=== PATIENT | male | born 1995 | race Caucasian/White ===

== ENCOUNTER 2018-06-24 12:26 | Emergency (ER) | payer BC, SELFPAY ==
[2018-06-24 12:30] VITALS: BP 142/76; PULSE 101; RESP 20; TEMP 36.7; O2SAT 94
== END 2018-06-24 14:18 | disposition left before discharge ==
LOC: ER 12:45
PROVIDERS: Emergency Provider Physician Assistant; PCP Family Medicine
DX: Z53.21 Procedure and treatment not carried out due to patient leaving prior to being seen by health care provider (principal)

== ENCOUNTER 2018-12-05 10:02 | Emergency (ER) | payer MEDICAID, SELFPAY ==
[2018-12-05 10:43] VITALS: BP 124/87; PULSE 71; RESP 18; TEMP 36.7; O2SAT 100
--- NOTE | 2018-12-05 10:48 | DI.RAD_ITS ---
SYMPTOM/DIAGNOSIS: PAIN RIGHT SHOULDER: Five views. Comparison chest xray is 08/12/15. The distal clavicle is slightly elevated relative to the acromion. This may represent a mild separation. No other fracture or dislocation is identified. IMPRESSION: Mild elevation of the clavicle relative to the acromion. This may represent a mild acromioclavicular separation.
--- NOTE | 2018-12-05 11:16 | ED.GENADUL_ITS ---
Discharge Plan Disposition Patient Disposition: HOME Condition: Stable Discharge Details Chief Complaint: Orthopedic Clinical Impression: Sprain of shoulder, right Primary Care Provider: Kristie Berger ED Provider: Maurice Staton Home Meds and New Rx's Prescriptions: Continued omeprazole 40 mg capsule,delayed release(DR/EC) 40 mg PO DAILY Qty: 90 RF: 0 albuterol sulfate [ProAir HFA] 90 mcg/actuation HFA aerosol inhaler 2 inh Inhalation QID PRN (Reason: bronchospasm) Qty: 8.5 RF: 4 sucralfate 1 gram tablet 1 g PO BID Qty: 60 RF: 3 methadone 10 mg Tablet 75 mg PO DAILY RF: 0 Discharge Instructions Instructions: Shoulder Sprain (ED) Additional Instructions: You may use the provided sling as needed for discomfort but you should perform gentle range of motion activities and you may slowly increase use of your shoulder as tolerated by pain. If not improving over the next 2 weeks please follow-up with orthopedist for reassessment. Referrals: Shawn Grajeda MD [ [facility]FF [facility]YS[facility]IAN] - (As needed for reassessment or if not improving) Discharge Data Discharge Date/Time-TO BE ENTERED AT DEPARTURE: 12/05/18 11:51 Medical Decision Making Patient presenting to the emergency department for chief complaint of right shoulder pain and injury. Patient states that he was arrested by the police on Thursday and when they twisted his arm behind him his right shoulder was injured. Patient denies any other injury or discomfort, chest pain, difficulty breathing. Exam shows some proximal humerus tenderness and tenderness to posterior aspect of shoulder mostly soft tissue. Remainder of exam of the proximity is otherwise unremarkable. Plan to perform radiological imaging of shoulder and give acetaminophen pending results Review of radiological imaging and radiologist termination shows no acute fracture but the radiologist interpretation says some slight elevation of AC joint for possible AC joint injury patient has no pain or discomfort in this area so I do not feel that that is area of concern. patient diagnosed with shoulder sprain and encouraged to rest shoulder and to slowly advance activity as tolerated. Patient was given a sling for comfort measures only but encouraged to perform range of motion activities and to call orthopedist if not improving over the next 2-week. Return precautions discussed. After discussion of diagnosis and plan of care patient has no further needs, questions, or concerns and states clear understanding to return to the emergency department for any worsening symptoms. HPI General Mode of arrival: ambulatory . Date/Time Provider Initiated Documentation: 12/05/18 10:48 . Limitations to Documentation: no limitations . Information obtained by: patient and RN notes reviewed . History of Present Illness 23 year old M presents to the emergency department with the chief complaint of right shoulder injury, described as moderate, with intensity rated at 5. Quality is described as aching, and is localized to the right and upper extremity. Patient started experiencing this day(s) (5) and it has been constant. Patient notes no other symptoms.. Patient did receive the following treatments prior to arrival, none Related Data Home Medications Medication Instructions Recorded Confirmed albuterol sulfate HFA 90 2 inh INHALATION QID PRN #8.5 gm 09/26/18 12/05/18 mcg/actuation aerosol inhaler omeprazole 40 mg capsule,delayed 40 mg PO DAILY #90 tab-cap 09/26/18 12/05/18 release sucralfate 1 gram tablet 1 g PO BID #60 tab-cap 09/26/18 12/05/18 methadone 75 mg PO DAILY 12/05/18 12/05/18 Previous Rx's Medication Instructions Recorded albuterol sulfate HFA 90 2 inh INHALATION QID PRN #8.5 gm 09/26/18 mcg/actuation aerosol inhaler omeprazole 40 mg capsule,delayed 40 mg PO DAILY #90 tab-cap 09/26/18 release sucralfate 1 gram tablet 1 g PO BID #60 tab-cap 09/26/18 Allergies Allergy/AdvReac Type Severity Reaction Status Date / Time ibuprofen AdvReac Intermediate Nausea Unverified 12/05/18 10:48 General Stated Complaint: Orthopedic DONOVAN: 4 Review of Systems Cardiovascular Denies chest pain and Denies dyspnea Respiratory Denies cough and Denies dyspnea Musculoskeletal Reports as per HPI, Denies numbness and Denies tingling Integumentary/Breasts Denies rash, Denies sores and Denies wounds Neurologic Denies numbness and Denies tingling PFSH Medical History ADHD (attention deficit hyperactivity disorder) Heart murmur, systolic Nicotine addiction Family History Brother GERD (gastroesophageal reflux disease) Bleeding ulcer Social History Smoking/Tobacco Use Status: Current every day Drug use: Occasionally Do you feel safe in your relationship?: Yes Exam Const General: cooperative and no acute distress Orientation: alert, awake and oriented x3 Resp Effort & Inspection: normal respiratory effort and able to speak in complete sentences Cardio Rate: regular rate Rhythm: regular rhythm Extrem Right upper extremity: shoulder/upper arm Details: tenderness Location: of the proximal humerus; not of the A-C joint, not over the biceps tendon and not over the subacromial bursa, axillary nerve sensory function normal and abnormal ROM Details: pain with active ROM and with range as follows (Decrease overhead extension and discomfort with posterior adbuction); no abrasions, no ecchymosis and no crepitus, elbow/forearm Details: normal to inspection and normal ROM; no tenderness, wrist Details: normal to inspection, normal ROM and normal vascular exam; no tenderness and hand Details: normal to inspection Course Vital Signs Temperature 36.7 C 12/05/18 10:43 Pulse 71 12/05/18 10:43 Respiratory Rate 18 12/05/18 10:43 Blood Pressure 124/87 12/05/18 10:43 Pulse Oximetry 100 12/05/18 10:43 Temperature 36.7 C 12/05/18 10:43 Temperature Source Skin 12/05/18 10:43 Pulse 71 12/05/18 10:43 Respiratory Rate 18 12/05/18 10:43 Respiratory Effort 12/05/18 10:48 Blood Pressure 124/87 12/05/18 10:43 Pulse Oximetry 100 12/05/18 10:43 Oxygen Delivery Method Room Air 12/05/18 10:43 Oxygen Flow Rate 0 12/05/18 10:43 Pain Level 7 12/05/18 10:43
--- NOTE | 2018-12-05 11:33 | DI.VRAD_ITS ---
EXAM: XR Right Shoulder, Complete, 2 or More Views EXAM DATE/TIME: 12/05/2018 10:52 AM CLINICAL HISTORY: 23 years old, male; Signs and symptoms; Other: Pain TECHNIQUE: XR Right shoulder, complete 2 or more views. COMPARISON: No relevant prior studies available. FINDINGS: Bones/joints: Clavicle is mildly elevated compared to the acromium. This may represent acromioclavicular disassociation. There is no evidence of acute fracture. Normal alignment of the glenohumeral joint Soft tissues: Normal. IMPRESSION: Clavicle is mildly elevated compared to the acromium. This may represent acromioclavicular disassociation. Dictated and Authenticated by: Ted Contreras MD. Ordering:BERNA Richards MD
--- NOTE | 2018-12-05 11:49 | NUR.NOTE ---
patient refused sling patient educated on accepting sling and patient further refused Nursing Note:
== END 2018-12-05 11:51 | disposition home or self-care (01) ==
PROVIDERS: Emergency Provider Nurse Practitioner Family; PCP Family Medicine
DX: S43.401A Unspecified sprain of right shoulder joint, initial encounter (principal); Y04.8XXA Assault by other bodily force, initial encounter
CPT/HCPCS: 99283; 73030; 99282

== ENCOUNTER 2019-04-24 15:27 | Emergency (ER) | payer MEDICAID, SELFPAY ==
[2019-04-24 15:33] VITALS: BP 141/96; PULSE 101; RESP 16; TEMP 37.1; O2SAT 99
--- NOTE | 2019-04-24 15:51 | ED.GENADUL_ITS ---
Discharge Plan Disposition Patient Disposition: HOME Condition: Stable Discharge Details Chief Complaint: Laceration Clinical Impression: Abrasion of hand, right Primary Care Provider: Tanya Vela ED Provider: Reggie Mari Home Meds and New Rx's Prescriptions: No Action ibuprofen 600 mg tablet 600 mg PO TID Qty: 60 RF: 0 omeprazole 40 mg capsule,delayed release(DR/EC) 40 mg PO DAILY Qty: 90 RF: 0 albuterol sulfate [ProAir HFA] 90 mcg/actuation HFA aerosol inhaler 2 inh Inhalation QID PRN (Reason: bronchospasm) Qty: 8.5 RF: 4 sucralfate 1 gram tablet 1 g PO BID Qty: 60 RF: 2 methadone 10 mg Tablet 75 mg PO DAILY RF: 0 Discharge Instructions Additional Instructions: use a wet to dry dressing on the wound until it is well healed if redness spreads down the hand, you have severe pain or fevers return to the emergency department for reevaluation Medical Decision Making 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 He has 3cm of skin tearing of psoterior left ring finger and small abrasions to distal left middle and index finger with full rom of all fingers andintact sensation, doubt tendon injury or nerve injury. He also notes several days of psoterior left hand redness and does have 2x2cm of erythema of the left posterior hand that is wamr to touch, no crepitus or fluctuance, has a small abrasion in middle, likely has cellulitis. will xray hand to eval for fx xray negative for fx. I place skin adhesive on the middle and index fingers and will have nursing place a wet to dry dressing on the wound and have pt do the same until it heals. Return precautions given Differential Diagnosis abrasion, laceration, fx Imaging Data Radiologic Study: Attestation: I personally reviewed and interpreted this imaging study as follows: Imaging: X-Ray Radiologist's impression: no acute findings HPI General Mode of arrival: ambulatory . Date/Time Provider Initiated Documentation: 04/24/19 15:47 . Limitations to Documentation: no limitations . Information obtained by: patient . History of Present Illness 24 year old M presents to the emergency department with the chief complaint of left hand injury, described as moderate, Quality is described as aching, and is localized to the left and upper extremity. No relieving factors improve symptom(s), No exacerbating factors reported . Patient did receive the following treatments prior to arrival, none Related Data Home Medications Medication Instructions Recorded Confirmed albuterol sulfate 90 mcg/actuation 2 inh INHALATION QID PRN #8.5 gm 09/26/18 04/24/19 aerosol inhaler omeprazole 40 mg capsule,delayed 40 mg PO DAILY #90 tab-cap 09/26/18 04/24/19 release methadone 75 mg PO DAILY 12/05/18 04/24/19 sucralfate 1 gram tablet 1 g PO BID #60 tab-cap 12/18/18 04/24/19 ibuprofen 600 mg tablet 600 mg PO TID #60 tab 12/29/18 04/24/19 Previous Rx's Medication Instructions Recorded albuterol sulfate 90 mcg/actuation 2 inh INHALATION QID PRN #8.5 gm 09/26/18 aerosol inhaler omeprazole 40 mg capsule,delayed 40 mg PO DAILY #90 tab-cap 09/26/18 release sucralfate 1 gram tablet 1 g PO BID #60 tab-cap 12/18/18 ibuprofen 600 mg tablet 600 mg PO TID #60 tab 12/29/18 Allergies Allergy/AdvReac Type Severity Reaction Status Date / Time ibuprofen AdvReac Intermediate Nausea Unverified 04/24/19 15:36 General Stated Complaint: Laceration DONOVAN: 4 Review of Systems Review of Systems All systems reviewed & are unremarkable except as noted in HPI and below Constitutional Denies chills, Denies fever(s) and Denies weakness Cardiovascular Denies chest pain and Denies dyspnea Respiratory Denies cough and Denies dyspnea Gastrointestinal Denies abdominal pain, Denies nausea and Denies vomiting Neurologic Denies weakness [facility] Social History Smoking/Tobacco Use Status: Current every day Drug use: Occasionally Do you feel safe in your relationship?: Yes Exam Const General: no acute distress Orientation: alert HENMT Head: normal to inspection Ears: external ears normal General nose exam: external nose normal Mouth: moist mucous membranes Eyes General: appearance normal, both eyes and all related structures Neck Neck: normal visual inspection Resp Effort & Inspection: normal respiratory effort and able to speak in complete sentences Cardio Rate: regular rate Skin General skin exam: no rashes or lesions noted Neuro General: alert and oriented x3 Extrem General: full ROM and normal capillary refill Psych Mental Status: mental status grossly normal Course Vital Signs Temperature 37.1 C 04/24/19 15:33 Pulse 101 H 04/24/19 15:33 Respiratory Rate 16 04/24/19 15:33 Blood Pressure 141/96 H 04/24/19 15:33 Pulse Oximetry 99 04/24/19 15:33 Temperature 37.1 C 04/24/19 15:33 Temperature Source Skin 04/24/19 15:33 Pulse 101 H 04/24/19 15:33 Respiratory Rate 16 04/24/19 15:33 Respiratory Effort Non-Labored 04/24/19 15:33 Blood Pressure 141/96 H 04/24/19 15:33 Blood Pressure Position Sitting 04/24/19 15:33 Pulse Oximetry 99 04/24/19 15:33 Oxygen Delivery Method Room Air 04/24/19 15:33 Oxygen Flow Rate 0 04/24/19 15:33 Pain Level 6 04/24/19 15:33
--- NOTE | 2019-04-24 17:00 | DI.RAD_ITS ---
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 No acute fracture or dislocation is seen. No radiopaque foreign bodies are seen in the soft tissues. There are soft tissue injuries seen at the distal aspect of the left middle finger. No radiopaque foreign bodies are identified. IMPRESSION: No acute fracture or dislocation.
--- NOTE | 2019-04-24 17:10 | DI.VRAD_ITS ---
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 Views: 3 or more views. COMPARISON: CR LEFT HAND COMPLETE 05/04/2015 4:04 PM FINDINGS: The bony structures are in anatomic alignment. No fracture is present. No radiopaque foreign body is identified. The joint spaces are well maintained. Suggestion of a mild soft tissue injury to the medial aspect of the distal long finger. IMPRESSION: No evidence of acute bony abnormality. Dictated and Authenticated by: Niles Villanueva MD. Ordering:[id number] Paredes MD
== END 2019-04-24 18:15 | disposition home or self-care (01) ==
PROVIDERS: Emergency Provider Emergency Medicine; PCP Nurse Practitioner Family
DX: S61.215A Laceration without foreign body of left ring finger without damage to nail, initial encounter (principal); S60.413A Abrasion of left middle finger, initial encounter; S60.411A Abrasion of left index finger, initial encounter; W31.2XXA Contact with powered woodworking and forming machines, initial encounter
CPT/HCPCS: 12002; 73130

== ENCOUNTER 2019-06-02 03:55 | Outpatient (CLI) | payer MEDICAID, SELFPAY ==
--- NOTE | 2019-06-02 11:51 | DI.RAD_ITS ---
SYMPTOMS/DIAGNOSIS: BACK PAIN, M54.9 THORACIC SPINE: Four views were obtained. The intervertebral disc spaces appear fairly well maintained. The bones appear intact. CONCLUSION: Negative examination of the thoracic spine. LUMBOSACRAL SPINE: Five views were obtained. The bones of the spine appear intact. The intervertebral disc spaces are well maintained. No abnormality of vertebral alignment is seen. There is no evidence of spondylolysis or spondylolisthesis. CONCLUSION: Normal lumbosacral spine.
== END 2019-06-02 04:15 ==
PROVIDERS: PCP Nurse Practitioner Family; Visit Provider Nurse Practitioner Family
DX: M54.6 Pain in thoracic spine (principal); M54.5 Low back pain
CPT/HCPCS: 72072; 72110

== ENCOUNTER 2019-10-02 13:43 | Emergency (ER) | payer MEDICAID, SELFPAY ==
[2019-10-02] MEDS: Balanced Salt Solution 15 ML BTL ×2 (15:00→15:01)
--- NOTE | 2019-10-02 15:00 | ED.GENADUL_ITS ---
Discharge Plan Disposition Patient Disposition: HOME Discharge Details Chief Complaint: EyeProblem Clinical Impression: Acute foreign body of left eye, Corneal abrasion, Dental caries Primary Care Provider: Tanya Vela ED Provider: Andrez Eagle Home Meds and New Rx's Prescriptions: New penicillin V potassium 500 mg tablet 500 mg PO Q8H 7 Days Qty: 21 RF: 0 erythromycin 5 mg/gram (0.5 %) ointment 0.5 inch OP TID Qty: 1 RF: 0 No Action ibuprofen 600 mg tablet 600 mg PO TID Qty: 60 RF: 0 omeprazole 40 mg capsule,delayed release(DR/EC) 40 mg PO DAILY Qty: 90 RF: 0 albuterol sulfate [ProAir HFA] 90 mcg/actuation HFA aerosol inhaler 2 inh Inhalation QID PRN (Reason: bronchospasm) Qty: 8.5 RF: 4 sucralfate 1 gram tablet 1 g PO BID Qty: 60 RF: 2 methadone 10 mg Tablet 75 mg PO DAILY RF: 0 Discharge Instructions Instructions: Dental Caries (ED), Corneal Abrasion (ED) Additional Instructions: Is very important that you apply the ointment to your left eye over the next 3 to 5 days. She develop worsening symptoms you should be evaluated emergently. Avoid sticking anything else into the eye. Referrals: Tanya Vela [Primary Care Provider] - 5 days HPI General Date/Time Provider Initiated Documentation: 10/02/19 14:34 . HPI Narrative: Patient is a 24-year-old male who presents to the emergency department with foreign body sensation in his left eye. 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 He has noted a small rust foreign body just above his cornea. He has had some redness and discharge from his left eye. He also complains of left lateral incisor dental pain and swelling with which which is been occurring for roughly 24 to 48 hours. No fevers. Patient denies any double vision but has had some blurry vision out of his left eye. Related Data Home Medications Medication Instructions Recorded Confirmed albuterol sulfate 90 mcg/actuation 2 inh INHALATION QID PRN #8.5 gm 09/26/18 04/24/19 aerosol inhaler omeprazole 40 mg capsule,delayed 40 mg PO DAILY #90 tab-cap 09/26/18 04/24/19 release methadone 75 mg PO DAILY 12/05/18 04/24/19 sucralfate 1 gram tablet 1 g PO BID #60 tab-cap 12/18/18 04/24/19 ibuprofen 600 mg tablet 600 mg PO TID #60 tab 12/29/18 04/24/19 erythromycin 0.5 inch OP TID #1 gm 10/02/19 penicillin V potassium 500 mg PO Q8H 7 Days #21 tab 10/02/19 Previous Rx's Medication Instructions Recorded albuterol sulfate 90 mcg/actuation 2 inh INHALATION QID PRN #8.5 gm 09/26/18 aerosol inhaler omeprazole 40 mg capsule,delayed 40 mg PO DAILY #90 tab-cap 09/26/18 release sucralfate 1 gram tablet 1 g PO BID #60 tab-cap 12/18/18 ibuprofen 600 mg tablet 600 mg PO TID #60 tab 12/29/18 erythromycin 0.5 inch OP TID #1 gm 10/02/19 penicillin V potassium 500 mg PO Q8H 7 Days #21 tab 10/02/19 Allergies Allergy/AdvReac Type Severity Reaction Status Date / Time ibuprofen AdvReac Intermediate Nausea Unverified 04/24/19 15:36 General Stated Complaint: EyeProblem DONOVAN: 4 Review of Systems Eyes Eyes: Denies blind spots, Reports blurry vision, Denies diplopia, Reports eye discharge, Denies floaters, Reports irritation, Reports itchy eyes, Denies loss of peripheral vision, Denies loss of vision, Reports eye pain, Denies seeing flashes and Reports photophobia ENT Ears, Nose, Mouth, and Throat: Reports dental pain Neurologic Neurologic: Denies loss of vision Allergic/Immunologic Allergic/Immunologic: Reports itchy eyes [facility] Medical History ADHD (attention deficit hyperactivity disorder) Heart murmur, systolic since Nicotine addiction Family History Brother GERD (gastroesophageal reflux disease) Bleeding ulcer Social History Smoking/Tobacco Use Status: Current every day Alcohol Intake: current Alcohol Intake frequency: a few times a month Drug use: Daily Substance use type: marijuana Do you feel safe at home: Yes Do you feel safe in your relationship?: Yes Exam Const General: cooperative, healthy appearing and comfortable Orientation: alert, awake and oriented x3 Course Vital Signs Vital signs: Respiratory Effort Non-Labored 10/02/19 13:52
[2019-10-02] MEDS: Fluorescein STRIPS 100/BOX 1 MG ×2 (15:01→15:31)
[2019-10-02] MEDS: Tetracaine 0.5% 4 ML BTL ×2 (15:01→15:31)
== END 2019-10-02 16:20 | disposition home or self-care (01) ==
PROVIDERS: Emergency Provider Physician Assistant; PCP Nurse Practitioner Family
DX: T15.02XA Foreign body in cornea, left eye, initial encounter (principal); S05.02XA Injury of conjunctiva and corneal abrasion without foreign body, left eye, initial encounter; X58.XXXA Exposure to other specified factors, initial encounter; K04.7 Periapical abscess without sinus
CPT/HCPCS: 99282

== ENCOUNTER 2019-11-03 02:51 | Outpatient (CLI) | payer MEDICAID, SELFPAY | END 2019-11-03 03:11 | PROVIDERS: PCP Nurse Practitioner Family; Visit Provider Family Medicine | DX: Z79.899 Other long term (current) drug therapy (principal); F11.20 Opioid dependence, uncomplicated | CPT/HCPCS: 93005; 93010 ==

== ENCOUNTER 2019-11-15 11:29 | Outpatient (REF) | payer MEDICAID, SELFPAY ==
[2019-11-15 12:03] LABS: Abs Immature Grans 0.01 k/cumm (0.0-0.09); Absolute Basophil Count 0.02 k/cumm (0.0-0.2); Absolute Eosinophil Count 0.12 k/cumm (0.0-0.7); Absolute Monocyte Count 0.63 k/cumm (0.11-0.7); Absolute Neutrophil Count 4.08 k/cumm (1.2-6.7); Basophils % 0.2; Eosinophils % 1.3; HCT 45.6 % (40.0-50.0); HGB 15.2 g/dL (13.5-17.5); Immature Grans % 0.1 %; Lymphocytes % 46.4; Mean Corp. HGB Concentration 33.3 g/dL (32.0-36.0); Mean Corpuscular Hemoglobin 29.9 pg (27.0-33.0); Mean Corpuscular Volume 89.8 fL (80-95); Mean Platelet Volume 11.7 fL (8.0-11.0); Platelet Count 237 x1000/uL (130-400); RBC 5.08 m/cumm (4.50-6.00); RBC Distribution Width 13.4 % (11.8-14.1); White Blood Cell Count 9.06 k/cumm (4.4-10.8)
[2019-11-15 12:10] LABS: ALT 34 U/L (16-63); AST 16 U/L (15-37); Albumin 4.2 g/dL (3.4-5.0); Alkaline Phosphatase 107 U/L (46-116); Anion Gap 7.8 mmol/L (3-11); BUN 18 mg/dL (7-18); Bilirubin, Total 0.2 mg/dL (0.2-1.0); CO2 31.2 mmol/L (21.0-32.0); CREATININE 0.95 mg/dL (0.70-1.30); Calcium 9.2 mg/dL (8.5-10.1); Chloride 106 mmol/L (98-107); Glucose 110 mg/dL (74-106); Potassium 4.4 mmol/L (3.5-5.1); Sodium 145 mmol/L (136-145); Total Protein 7.3 g/dL (6.4-8.2)
[2019-11-16 11:06] LABS: Hepatitis B Surface Ag Negative (Negative)
[2019-11-16 11:40] LABS: HIV-1/2 Ag & Ab Screen Negative (Negative)
[2019-11-16 11:43] LABS: Hepatitis C Ab w Rflx HCV PCR Negative (Negative)
[2019-11-16 11:50] LABS: Syphilis Serology (RPR) Negative (Negative)
== END 2019-11-15 11:49 ==
LOC: LBN 11:29
PROVIDERS: PCP Nurse Practitioner Family; Visit Provider Nurse Practitioner Family
DX: F11.20 Opioid dependence, uncomplicated (principal); Z11.3 Encounter for screening for infections with a predominantly sexual mode of transmission; Z79.899 Other long term (current) drug therapy; Z11.59 Encounter for screening for other viral diseases; Z11.4 Encounter for screening for human immunodeficiency virus [HIV]
CPT/HCPCS: 80053; 86803; 87340; 87389; 85025; 86592

== ENCOUNTER 2019-11-17 16:38 | Outpatient (REF) | payer MEDICAID, SELFPAY ==
[2019-11-17 21:34] LABS: Bilirubin Negative (Negative); Blood Negative (Negative); Clarity Clear (Clear); Glucose Negative (Negative); Ketones Negative (Negative); Leukocyte Esterase Negative (Negative); Nitrite Negative (Negative); Specific Gravity 1.025 (1.005-1.025); Urobilinogen 0.2 EU/dL (Up TO 0.2)
== END 2019-11-17 16:58 ==
LOC: NCHCN 16:38
PROVIDERS: PCP Nurse Practitioner Family; Visit Provider Nurse Practitioner Family
DX: R30.0 Dysuria (principal)
CPT/HCPCS: 81003

== ENCOUNTER 2019-11-18 07:44 | Outpatient (CLI) | payer MEDICAID, SELFPAY ==
[2019-11-21 13:24] LABS: Chlamydia Result Negative (Negative); GC Result Negative (Negative)
== END 2019-11-18 08:04 ==
PROVIDERS: PCP Nurse Practitioner Family; Visit Provider Nurse Practitioner Family
DX: Z11.3 Encounter for screening for infections with a predominantly sexual mode of transmission (principal)
CPT/HCPCS: 87491; 87591

== ENCOUNTER 2020-03-14 17:45 | Outpatient (REF) | payer MEDICAID, SELFPAY ==
[2020-03-20 10:35] LABS: Benzoylecgonine 1396 ng/mL (Cutoff: 50); Cocaine Negative ng/mL (Cutoff: 50); Cocaine Interpretation Positive.
== END 2020-03-14 18:05 ==
LOC: NCHCN 17:45
PROVIDERS: PCP Nurse Practitioner Family; Visit Provider Family Medicine
DX: F19.10 Other psychoactive substance abuse, uncomplicated (principal)
CPT/HCPCS: 80353

== ENCOUNTER 2021-05-09 10:13 | Outpatient (REF) | payer MEDICAID, SELFPAY ==
[2021-05-14 12:12] LABS: Benzoylecgonine 504 ng/mL (Cutoff: 50); Cocaine Negative ng/mL (Cutoff: 50); Cocaine Interpretation Positive.
== END 2021-05-09 10:14 | disposition home or self-care (01) ==
LOC: NCHCN 10:13
PROVIDERS: PCP Nurse Practitioner Family; Visit Provider Nurse Practitioner Family
DX: F19.10 Other psychoactive substance abuse, uncomplicated (principal)
CPT/HCPCS: 80353

== ENCOUNTER 2021-10-24 16:05 | Outpatient (REF) | payer MEDICAID, SELFPAY ==
[2021-10-26 11:12] LABS: COVID-19 RT-PCR UVMMC Result Negative (Negative)
== END 2021-10-24 16:06 | disposition home or self-care (01) ==
LOC: NCHCN 16:05
PROVIDERS: PCP Nurse Practitioner Family; Visit Provider Family Medicine
DX: Z20.822 Contact with and (suspected) exposure to COVID-19 (principal); J02.9 Acute pharyngitis, unspecified
CPT/HCPCS: U0003

== ENCOUNTER 2022-09-04 09:35 | Outpatient (REF) | payer MEDICAID, SELFPAY ==
[2022-09-04 15:52] LABS: Hemoglobin A1C 5.5 % (<5.7)
== END 2022-09-04 09:36 | disposition home or self-care (01) ==
LOC: NCHCN 09:35
PROVIDERS: PCP Nurse Practitioner Family; Visit Provider Nurse Practitioner Family
DX: Z13.1 Encounter for screening for diabetes mellitus (principal); Z83.3 Family history of diabetes mellitus; Z00.00 Encounter for general adult medical examination without abnormal findings
CPT/HCPCS: 83036

== ENCOUNTER 2022-09-15 12:40 | Outpatient (REF) | payer MEDICAID, SELFPAY ==
[2022-09-15 17:15] LABS: ALT 22 U/L (16-63); AST 18 U/L (15-37); Albumin 4.3 g/dL (3.4-5.0); Alkaline Phosphatase 93 U/L (46-116); BUN 12 mg/dL (7-18); Bilirubin, Total 0.4 mg/dL (0.2-1.0); CREATININE 0.9 mg/dL (0.70-1.30); Calcium 9.2 mg/dL (8.5-10.1); Calculated LDL 147 mg/dL (<100); Chloride 105 mmol/L (98-107); Cholesterol 210 mg/dL (<200); Estimated GFR 118.57 (mL/min/1.73m2); Glucose 107 mg/dL (74-106); HDL Cholesterol 31 mg/dL (40-60); Potassium 4.5 mmol/L (3.5-5.1); Sodium 139 mmol/L (136-145); Total Protein 7.8 g/dL (6.4-8.2); Triglyceride 160 mg/dL (<150)
== END 2022-09-15 12:41 | disposition home or self-care (01) ==
LOC: NCHCN 12:40
PROVIDERS: PCP Nurse Practitioner Family; Visit Provider Nurse Practitioner Family
DX: M54.9 Dorsalgia, unspecified (principal); J45.990 Exercise induced bronchospasm; Z83.3 Family history of diabetes mellitus; Z00.00 Encounter for general adult medical examination without abnormal findings
CPT/HCPCS: 80053; 80061

== ENCOUNTER 2024-02-01 14:16 | Outpatient (REF) | payer MEDICAID, SELFPAY ==
[2024-02-01 15:45] LABS: Abs Immature Grans 0.01 10^3/uL (0.0-0.06); Absolute Basophil Count 0.03 10^3/uL (0.0-0.2); Absolute Eosinophil Count 0.14 10^3/uL (0.0-0.7); Absolute Lymphocyte Count 2.02 10^3/uL (1.2-3.4); Absolute Monocyte Count 0.43 10^3/uL (0.1-0.8); Absolute Neutrophil Count 3.39 10^3/uL (1.2-6.7); Basophils % 0.5 %; Eosinophils % 2.3 %; HCT 41.9 % (40.0-50.0); HGB 14.2 g/dL (13.5-17.5); Immature Grans % 0.2 %; Lymphocytes % 33.6 %; MCH 30.1 pg (27.0-33.0); MCHC 33.9 % (32.0-36.0); MCV 89 fL (80-95); MPV 11.7 fL (8.0-11.0); Monocytes % 7.1 %; Neutrophils % 56.3 %; Platelet Count 191 10^3/uL (130-400); RBC 4.72 10^6/uL (4.36-5.78); RDW 12.6 % (11.8-14.1); RDW-SD 41.4 fL; WBC 6.02 10^3/uL (4.4-10.8)
[2024-02-01 16:10] LABS: Hemoglobin A1C 5.7 % (<5.7)
[2024-02-01 16:16] LABS: Vitamin D 25 Total 21.9 ng/mL (30-100)
[2024-02-01 16:45] LABS: ALT 27 U/L (16-63); AST 19 U/L (15-37); Albumin 4.3 g/dL (3.4-5.0); Alkaline Phosphatase 60 U/L (46-116); BUN 16 mg/dL (7-18); Bilirubin, Total 0.5 mg/dL (0.2-1.0); CREATININE 0.9 mg/dL (0.70-1.30); Calculated LDL 161 mg/dL (<100); Chloride 107 mmol/L (98-107); Cholesterol 214 mg/dL (<200); Estimated GFR 117.83 (mL/min/1.73m2); Glucose 98 mg/dL (74-106); HDL Cholesterol 44 mg/dL (40-60); Magnesium 1.8 mg/dL (1.8-2.4); Potassium 4.1 mmol/L (3.5-5.1); Sodium 145 mmol/L (136-145); Total Protein 7.5 g/dL (6.4-8.2); Triglyceride 49 mg/dL (<150); Vitamin B12 836 pg/mL (193-986)
== END 2024-02-01 14:17 | disposition home or self-care (01) ==
LOC: NCHCN 14:16
PROVIDERS: PCP Nurse Practitioner Family; Visit Provider Nurse Practitioner Family
DX: K21.9 Gastro-esophageal reflux disease without esophagitis (principal); Z82.49 Family history of ischemic heart disease and other diseases of the circulatory system; R20.2 Paresthesia of skin; G25.81 Restless legs syndrome; Z00.00 Encounter for general adult medical examination without abnormal findings
CPT/HCPCS: 80053; 80061; 82306; 82607; 83036; 83735; 85025

== ENCOUNTER → 2024-02-23 00:13 | Outpatient (CLI) | payer MEDICAID, SELFPAY ==
--- NOTE | 2024-02-23 | DI.RAD_ITS ---
Exam(s) XR EYE FOREIGN BODY EXAM: XR EYE FOREIGN BODY INDICATION: Pre-MRI CLEARANCE,H/O METAL TO EYE, LOW BACK PAIN, M54.50. COMPARISON: No exams were available for comparison TECHNIQUE: 2D digital imaging was performed. Two images were obtained. FINDINGS: No radiopaque foreign bodies are seen in the orbits. IMPRESSION: No radiopaque foreign bodies are seen in the orbits. DATA REPOSITORY: RADIATION DOSE DELIVERED:
--- NOTE | 2024-02-23 | DI.MRI_ITS ---
Exam(s) MR LUMBAR SPINE WO EXAM: MR LUMBAR SPINE WO CLINICAL HISTORY: LBP, M54.50. TECHNIQUE: Multiplanar multisequence MRI of the Lumbar spine was performed. COMPARISON: CR XR lumbar spine complete from 06/02/2019 FINDINGS: Bones: The last intervertebral disc space is designated the L5/S1 level for the numbering purpose of this examination. The vertebral body heights are well maintained. Alignment is satisfactory. The si gnal characteristics are unremarkable. Cord: The conus tip ends at the T12 level. It is of normal size and signal intensity. T12-L1: No disc herniations or bulges are present. No central spinal canal or neural foraminal stenos is. L1-2: No disc herniations or bulges are present. No central spinal canal or neural foraminal stenosis . L2-3: No disc herniations or bulges are present. No central spinal canal or neural foraminal stenosis . L3-4: No disc herniations or bulges are present. No central spinal canal or neural foraminal stenosis . L4-5: There is a mild diffuse disc bulge. No central spinal canal or neural foraminal stenosis. L5-S1: There is a small central disc herniation. There is a mild impression on the left and right S1 nerve roots. No central spinal canal or neural foraminal stenosis. Soft tissues: The visualized SI joints and sacrum are well maintained. The paraspinal soft tissues ar e unremarkable. IMPRESSION: 1. L5-S1 central disc herniation which mildly impresses upon the left and right S1 nerve roots. 2. Small diffuse disc bulge at L4-L5 without significant central spinal canal or neural foraminal ag nosis. DATA REPOSITORY:
== END ==
PROVIDERS: PCP Nurse Practitioner Family; Visit Provider Nurse Practitioner Family
DX: M51.27 Other intervertebral disc displacement, lumbosacral region (principal); T15.91XA Foreign body on external eye, part unspecified, right eye, initial encounter; X58.XXXA Exposure to other specified factors, initial encounter
CPT/HCPCS: 70030; 72148

== ENCOUNTER 2024-06-24 19:07 | Outpatient (REF) | payer MEDICAID, SELFPAY ==
--- OUTSIDE RECORDS SUMMARY | 2024-06-24 19:09 | XMS_ITS | Data Portability ---
Author Organization [facility] Address [address] [place] [address] Care Team Providers Care Canoe Builder Name Role Phone PIERRE DE JESUS Dental Hygienist Assessment Encounter Date Assessment Date Assessment LastModified by Organization Details LastModified Time 02/01/2024 02/01/2024 Patient presents with chronic back pain. Nature of pain: low back, radiating into both legs, and reports saddle numbness but not urinary or fecal incontinence. Based on history and physical exam, I recommend lumbar MRI and referral to physical therapy. Discussed treatment plan and instructions with patient. [email or web address] Not available 02/03/2024 18:14:33 Plan of Treatment Reminders Order Date Submit Date Provider Last Modified By Organization Details Last Modified Time Details Appointments Office Visit 2023 03:10P M Not available Not available Not available Follow Up 2023 09:30A M Not available Not available Not available Follow Up 2023 08:00A M Not available Not available Not available Lab CMP, serum or plasma 2023 024 [facility] (Registration ), [address] [place] [address] [place], [address], 02/01/2024 16:48:26 vitami n D, 25-hyd otis, total, serum 2023 024 [facility] (Registration ), [address] [place] [address] [place], [address], 02/01/2024 16:18:15 HbA1c (hemog lobin A1c), blood [address] [facility] (Registration ), [address] [place] [address] [place], [address], 03/11/2024 10:16:59 CBC w/ auto diff 2023 024 [facility] (Registration ), [address] [place] [address] [place], [address], 02/01/2024 15:51:15 lipid panel, serum [address] [facility] (Registration ), [address] [place] [address] [place], [address], 06/24/2024 15:20:19 vitami n B12, serum [address] [facility] (Registration ), [address] [place] [address] [place], [address], 06/24/2024 15:21:04 magnes ium, serum or plasma [address] [facility] (Registration ), [address] [place] [address] [place], [address], 06/24/2024 15:21:18 Referral physic al therap ist referr al 2023 024 [email or web address] Not available 02/04/2024 13:40:36 pain manage ment referr al - low back/h ip pain x many years; MRI done 4 at [facility] 2023 024 [facility], [address], [address], [place], [address], 05/03/2024 22:41:27 Procedures None record ed. Surgeries None record ed. Imaging MRI, lumbar spine, w/o contra st 2023 024 [facility], [address], [place], [address], 02/23/2024 14:08:19 Medication Orders clinda mycin HCl 150 mg capsul e 2022 023 [facility], [address] [place] [address], [address], 02/01/2024 11:11:43 clinda mycin HCl 150 mg capsul e 2022 023 [email or web address] [facility], [address] [place] [address], [id number], 02/01/2024 11:11:43 clinda mycin HCl 150 mg capsul e 2022 023 [email or web address] [facility], [address] [place] [address], [id number], 02/01/2024 11:11:43 chlorh exidin e glucon ate 0.12 % mouthw leonor 2022 023 EULA [facility], [address] [place] [address], [id number], 09/07/2023 18:34:07 clinda mycin HCl 150 mg capsul e 2022 023 [email or web address] [facility], [address] [place] [address], [id number], 02/01/2024 11:11:43 ibupro fen 600 mg tablet 2023 024 [email or web address] [facility], [address] [place] [address], [address], 02/01/2024 17:16:40 omepra zole 40 mg capsul e,thomas yed releas e 2023 024 [email or web address] alton [facility], [address] [place] [address], [id number], 02/01/2024 17:16:40 Patient TargetsNo targets recorded. Patient InstructionsNo instructions recorded. Reason for Referral Physical Therapist Referral for Chronic low back pain Referring Physician: John Cat [facility], Encounter Date: 02/01/2024 Physical Therapist Referral for Low back pain Referring Physician: John Cat [facility], Encounter Date: 02/19/2024 Pain Management Referral for Chronic low back pain low back/hip pain x many years; MRI done 02/23/24 at [facility] Referring Physician: John Cat [facility], Encounter Date: 03/14/2024 Results Created Date Observation Date Name Description Value Unit Range Abnormal Flag Note LastModifiedBy Organization Detail LastModifiedTime 02/01/2002/01/2024 COMPL ETE BLOOD COUNT W/DIF F WBC 6.02 10_3/ uL 4.4-10 .8 normal Not Available [address], [address] 02/01/2024 15:51:14 02/01/20 24 02/01/2024 COMPL ETE BLOOD COUNT W/DIF F RBC 4.72 10_6/ uL 4.36-5 .78 normal Not Available [address] [place], [address] 02/01/2024 15:51:14 02/01/20 24 02/01/2024 COMPL ETE BLOOD COUNT W/DIF F HGB 14.2 g/dL 13.5-1 7.5 normal Not Available [address] [place], [address] 02/01/2024 15:51:14 02/01/2002/01/2024 COMPL ETE BLOOD COUNT W/DIF F HCT 41.9 % 40.0-5 0.0 normal Not Available [address] [place], [address] 02/01/2024 15:51:14 02/01/20 24 02/01/2024 COMPL ETE BLOOD COUNT W/DIF F MCV 89 fL 80-95 normal Not Available Maverick [address] [place], [address] 02/01/2024 15:51:14 02/01/20 24 02/01/2024 COMPL ETE BLOOD COUNT W/DIF F MCH 30.1 pg 27.0-3 3.0 normal Not Available [address] [place], [address] 02/01/2024 15:51:14 02/01/20 24 02/01/2024 COMPL ETE BLOOD COUNT W/DIF F MCHC 33.9 % 32.0-3 6.0 normal Not Available [address] [place], [address] 02/01/2024 15:51:14 02/01/20 24 02/01/2024 COMPL ETE BLOOD COUNT W/DIF F RDW 12.6 % 11.8-1 4.1 normal Not Available [address] [place], [address] 02/01/2024 15:51:14 02/01/20 24 02/01/2024 COMPL ETE BLOOD COUNT W/DIF F platelet count 191 10_3/ uL 130-40 0 normal Not Available [address] [place], [address] 02/01/2024 15:51:14 02/01/20 24 02/01/2024 COMPL ETE BLOOD COUNT W/DIF F MPV 11.7 fL 8.0-11 .0 high Not Available [address] [place], [address] 02/01/2024 15:51:14 02/01/20 24 02/01/2024 COMPL ETE BLOOD COUNT W/DIF F neutrophils % 56.3 % Not Available [address] [place], [address] 02/01/2024 15:51:14 02/01/20 24 02/01/2024 COMPL ETE BLOOD COUNT W/DIF F lymphocytes % 33.6 % Not Available [address] [place], [address] 02/01/2024 15:51:14 02/01/20 24 02/01/2024 COMPL ETE BLOOD COUNT W/DIF F monocytes % 7.1 % Not Available [address], [address] 02/01/2024 15:51:14 02/01/20 24 02/01/2024 COMPL ETE BLOOD COUNT W/DIF F eosinophils % 2.3 % Not Available [address] [place], [address] 02/01/2024 15:51:14 02/01/20 24 02/01/2024 COMPL ETE BLOOD COUNT W/DIF F basophils % 0.5 % Not Available [address] [place], [address] 02/01/2024 15:51:14 02/01/20 24 02/01/2024 COMPL ETE BLOOD COUNT W/DIF F immature grans % 0.2 % Not Available [address] [place], [address] 02/01/2024 15:51:14 02/01/20 24 02/01/2024 COMPL ETE BLOOD COUNT W/DIF F nucleated RBC 0.0 % 0.0-0. 3 normal Not Available [address] [place], [address] 02/01/2024 15:51:14 02/01/20 24 02/01/2024 COMPL ETE BLOOD COUNT W/DIF F absolute neutrophil count 3.39 10_3/ uL 1.2-6. 7 normal Not Available [address] [place], [address] 02/01/2024 15:51:14 02/01/20 24 02/01/2024 COMPL ETE BLOOD COUNT W/DIF F absolute lymphocyte count 2.02 10_3/ uL 1.2-3. 4 normal Not Available [address] [place] [place], [address] 02/01/2024 15:51:14 02/01/20 24 02/01/2024 COMPL ETE BLOOD COUNT W/DIF F absolute monocyte count 0.43 10_3/ uL 0.1-0. 8 normal Not Available [address] [place], [address] 02/01/2024 15:51:14 02/01/20 24 02/01/2024 COMPL ETE BLOOD COUNT W/DIF F absolute eosinophil count 0.14 10_3/ uL 0.0-0. 7 normal Not Available [address] [place], [address] 02/01/2024 15:51:14 02/01/20 24 02/01/2024 COMPL ETE BLOOD COUNT W/DIF F absolute basophil count 0.03 10_3/ uL 0.0-0. 2 normal Not Available [address] [place], [address] 02/01/2024 15:51:14 02/01/20 24 02/01/2024 HEMOG LOBIN A1C hemoglobin A1C 5.7 % <5.7 Refer ence Range s <5.7 Ira l 5.7-6 .4% Predi abete s 6.5% or great er Diagn ostic for diabe ara (if confi rmed) Refer ences : 1. Ameri can Diabe ara Assoc iatio n. Clas sific ation and Diagn osis of Diabe ara. Diabe ara Care 2018 2(Sup pleme nt 1):S1 3-s28 . Not Available [address] [place], [address] 02/01/2024 16:14:14 02/01/20 24 02/01/2024 VITAM IN D 25 TOTAL vitamin D 25 total 21.9 NG/mL 30-100 low Refer ence Guide lines : Defic ient: <10 ng/ml Insuf ficie nt: 10-30 ng/ml Suffi cient : 30-10 0 ng/ml Toxic : >100 ng/ml Not Available [address] [place], [address] 02/01/2024 16:18:15 02/01/20 24 02/01/2024 COMPR EHENS MARCIANO METAB OLIC PANEL calcium 9.0 mg/dL 8.5-10 .1 normal Not Available [address] [place], [address] 02/01/2024 16:48:26 02/01/20 24 02/01/2024 COMPR EHENS MARCIANO METAB OLIC PANEL glucose 98 mg/dL 74-106 normal Not Available Maverick reddy [address] [place], [address] 02/01/2024 16:48:26 02/01/20 24 02/01/2024 COMPR EHENS MARCIANO METAB OLIC PANEL BUN 16 mg/dL 7-18 normal Not Available Maverick reddy [address] [place], [address] 02/01/2024 16:48:26 02/01/20 24 02/01/2024 COMPR EHENS MARCIANO METAB OLIC PANEL creatinine 0.9 mg/dL 0.70-1 .30 normal Not Available [address] [place], [address] 02/01/2024 16:48:26 02/01/20 24 02/01/2024 COMPR EHENS MARCIANO METAB OLIC PANEL estimated GFR 117.83 mL/min /1.73m 2 The eGFR is calcu lated from a serum creat inine using the CKD-E PI 2020 equat ion. Other varia bles requi red for the equat ion are gende r and age; this equat ion does not inclu de a race coeff icien t. This equat ion has simil ar overa ll perfo rmanc e to previ ous equat ions excep t value s may diffe r, in parti cular , in patie nts with highe r value s of eGFR and young er-ag ed adult s. Not Available [address] [place], [address] 02/01/2024 16:48:26 02/01/20 24 02/01/2024 COMPR EHENS MARCIANO METAB OLIC PANEL total protein 7.5 g/dL 6.4-8. 2 normal Not Available [address] [place], [address] 02/01/2024 16:48:26 02/01/20 24 02/01/2024 COMPR EHENS MARCIANO METAB OLIC PANEL albumin 4.3 g/dL 3.4-5. 0 normal Not Available [address] [place], [address] 02/01/2024 16:48:26 02/01/20 24 02/01/2024 COMPR EHENS MARCIANO METAB OLIC PANEL bilirubin, total 0.5 mg/dL 0.2-1. 0 normal Not Available [address] [place], [address] 02/01/2024 16:48:26 02/01/20 24 02/01/2024 COMPR EHENS MARCIANO METAB OLIC PANEL alk phos 60 U/L 46-116 normal Not Available [address] [place], [address] 02/01/2024 16:48:26 02/01/20 24 02/01/2024 COMPR EHENS MARCIANO METAB OLIC PANEL sodium 145 mmol/ L 136-14 5 normal Not Available [address] [place], [address] 02/01/2024 16:48:26 02/01/20 24 02/01/2024 COMPR EHENS MARCIANO METAB OLIC PANEL potassium 4.1 mmol/ L 3.5-5. 1 normal Not Available [address] [place], [address] 02/01/2024 16:48:26 02/01/20 24 02/01/2024 COMPR EHENS MARCIANO METAB OLIC PANEL chloride 107 mmol/ L 98-107 normal Not Available [address] [place], [address] 02/01/2024 16:48:26 02/01/20 24 02/01/2024 COMPR EHENS MARCIANO METAB OLIC PANEL CO2 28.0 mmol/ L 21.0-3 2.0 normal Not Available [address] [place], [address] 02/01/2024 16:48:26 02/01/20 24 02/01/2024 COMPR EHENS MARCIANO METAB OLIC PANEL anion gap 10.0 mmol/ L 3-11 normal Not Available [address] [place], [address] 02/01/2024 16:48:26 02/01/20 24 02/01/2024 COMPR EHENS MARCIANO METAB OLIC PANEL AST 19 U/L 15-37 normal Not Available [address] [place], [address] 02/01/2024 16:48:26 02/01/20 24 02/01/2024 COMPR EHENS MARCIANO METAB OLIC PANEL ALT 27 U/L 16-63 normal Not Available Maverick reddy [address] [place], [address] 02/01/2024 16:48:26 02/01/20 24 02/01/2024 LIPID 2 cholesterol 214 mg/dL <200 high Not Available [facility] [address] [place], [address] 02/01/2024 16:48:27 02/01/20 24 02/01/2024 LIPID 2 triglyceride 49 mg/dL <150 Not Available [address] [place], [address] 02/01/2024 16:48:27 02/01/20 24 02/01/2024 LIPID 2 HDL cholesterol 44 mg/dL 40-60 Not Available Mirella hudson [address] [place], [address] 02/01/2024 16:48:27 02/01/20 24 02/01/2024 LIPID 2 calculated LDL 161 mg/dL <100 high Natio nal Chiqui stero l Educa tion Progr am (NCEP -ATPI II) class ifica tions : Chiqui stero l <200 mg/dL Alicia able Chiqui stero l 200-2 39 mg/dL Borde rline High Chiqui stero l >or=2 40 mg/dL High HDL <40 mg/dL Low HDL >or=6 0 mg/dL High LDL <100 mg/dL Optim al LDL 100-1 29 mg/dL Near Optim al/Ab ove Optim al LDL 130-1 59 mg/dL Borde rline High LDL 160-1 89 mg/dL High LDL >or=1 90 mg/dL Very High *The above refer ence range is for adult s 18 years or older . Not Available [address] [place], [address] 02/01/2024 16:48:27 02/01/20 24 02/01/2024 MAGNE SIUM magnesium 1.8 mg/dL 1.8-2. 4 normal Not Available [address] [place], [address] 02/01/2024 16:48:27 02/01/20 24 02/01/2024 VITAM IN B12 vitamin B12 836 pg/mL 193-98 6 normal Not Available [address] [place], [address] 02/01/2024 16:48:28 02/23/20 24 02/23/2024 XR, eye, for forei gn body Patien t Name: Germain Muñoz Unit #: [id number] Loc: DI Orderi ng Provid er: Lupillo Abraham Accoun t #: [id number] Status : REG CLI Primar y Care Provid er: Tanya Vela Date of Exam: Sex: M Admiss ion Date: : 1994 Age: 28 Exam(s ) XR EYE FOREIG N BODY EXAM: XR EYE FOREIG N BODY INDICA TION: Pre-MR I CLEARA NCE,H/ O METAL TO EYE, LOW BACK PAIN, M54.50 . COMPAR TIMMY: No exams were availa ble for compar timmy TECHNI QUE: 2D digita l imagin g was perfor med. Two images were obtain ed. FINDIN GS: No radiop aque foreig n bodies are seen in the orbits . IMPRES ZACK: No radiop aque foreig n bodies are seen in the orbits . DATA REPOSI TORY: RADIAT ION DOSE DELIVE RED: Trell ruiz By: Lupillo Abraham CC: ------ ------ ------ ------ ------ ------ ------ ------ ------ ------ ------ ------ - Dictat ed By: Prabhu Lewis M.D. 1011 1011 Transc ribed By: Prabhu Lewis 1011 This is privil eged, confid ential inform ation intend ed only for the provid er named. Any use or distri bution by any person other than this provid er is strict ly prohib ited. If you receiv e this report in error, please notify us immedi stephanie at [phone] and return the origin al report to us at the addres s above. Thank- you. [email or web address] [facility] [address], [address] 03/02/2024 20:44:36 02/23/20 24 02/23/2024 MRI imagi ng repor t Patidread t Name: Germain Muñoz Unit #: [id number] Loc: DI Orderi ng Provid er: Brettjudith ce-Jason wLupillo ki Accoun t #: [id number] Status : REG CLI Primar y Care Provid er: Tanya Vela Date of Exam: Sex: M Admiss ion Date: : 1994 Age: 28 Exam(s ) MR LUMBAR SPINE WO EXAM: MR LUMBAR SPINE WO CLINIC AL HISTOR Y: LBP, M54.50 . TECHNI QUE: Multip lanar multis equenc e MRI of the Lumbar spine was perfor med. COMPAR TIMMY: CR XR lumbar spine comple te from 2018 FINDIN GS: Bones: The last interv ertebr al disc space is design ated the L5/S1 level for the number ing purpos e of this examin ation. The verteb ral body height s are well mainta ined. Alignm ent is satisf actory . The signal charac terist ics are unrema rkable . Cord: The conus tip ends at the T12 level. It is of normal size and signal intens ity. T12-L1 : No disc hernia tions or bulges are presen t. No centra l spinal canal or neural forami nal stenos is. L1-2: No disc hernia tions or bulges are presen t. No centra l spinal canal or neural forami nal stenos is. L2-3: No disc hernia tions or bulges are presen t. No centra l spinal canal or neural forami nal stenos is. L3-4: No disc hernia tions or bulges are presen t. No centra l spinal canal or neural forami nal stenos is. L4-5: There is a mild diffus e disc bulge. No centra l spinal canal or neural forami nal stenos is. L5-S1: There is a small centra l disc hernia tion. There is a mild impres zack on the left and right S1 nerve roots. No centra l spinal canal or neural forami nal stenos is. Soft tissue s: The visual ized SI joints and sacrum are well mainta ined. The parasp inal soft tissue s are unrema rkable . IMPRES ZACK: 1. L5-S1 centra l disc hernia tion which mildly impres ses upon the left and right S1 nerve roots. 2. Small diffus e disc bulge at L4-L5 withou t signif icant centra l spinal canal or neural forami nal stenos is. DATA REPOSI TORY: Trell d By: Melissa fry-Jason wLupillo CC: ------ ------ ------ ------ ------ ------ ------ ------ ------ ------ ------ ------ - Dictat ed By: Prabhu Lewis M.D. 1132 1132 Transc ribed By: Prabhu Lewis 1132 This is privil eged, confid ential inform ation intend ed only for the provid er named. Any use or distri bution by any person other than this [facility] er is strict ly prohib ited. If you receiv e this report in error, please notify us immedi ately at and return the origin al report to us at the addres s above. Thank- you. cindy [facility] [address], [place], [address] 03/07/2024 17:34:45 02/23/20 24 02/23/2024 XR, eye, for forei gn body No observ ation record ed. cindy [facility] [address], [place], [address], 03/02/2024 19:12:00 02/23/20 24 02/23/2024 MRI, lumba r spine , w/o contr ast No observ ation record ed. [email or web address] [facility] (Radiology) [address], [place], [address], 03/20/2024 13:42:02 06/13/20 24 04/24/2019 imagi ng/di agnos tic resul t No observ ation record ed. [email or web address] Not Available 06/13 03:59:29 06/13/20 24 04/24/2019 imagi ng/di agnos tic resul t No observ ation record ed. [email or web address] Not Available 06/13 03:59:40 06/13/2006/02/2019 imagi ng/di agnos tic resul t No observ ation record ed. [email or web address] Not Available 06/13 03:59:41 06/13/2012/05/2018 imagi ng/di agnos tic resul t No observ ation record ed. [email or web address] Not Available 06/13 03:59:43 06/13/2012/05/2018 imagi ng/di agnos tic resul t No observ ation record ed. [email or web address] Not Available 06/13 03:59:44 Result Notes Documentation Provider Name and Address Organization Details Recorded Time Xr, Eye, For Foreign Body : Patient Name: Shant Muñoz Unit #: [id number] Loc: DI Ordering Provider: John Cat Account #: [id number] Status: REG CLI Primary Care Provider: Tanya Vela Date of Exam: 02/23/24 Sex: M Admission Date: 02/23/24 : 1995 Age: 28 Exam(s) XR EYE FOREIGN BODY EXAM: XR EYE FOREIGN BODY INDICATION: Pre-MRI CLEARANCE,H/O METAL TO EYE, LOW BACK PAIN, M54.50. COMPARISON: No exams were available for comparison TECHNIQUE: 2D digital imaging was performed. Two images were obtained. FINDINGS: No radiopaque foreign bodies are seen in the orbits. IMPRESSION: No radiopaque foreign bodies are seen in the orbits. DATA REPOSITORY: RADIATION DOSE DELIVERED: Ordered By: John Cat CC: - Dictated By: Prabhu Lewis M.D. 02/23/24 1011 02/23/24 1011 Transcribed By: Prabhu Lewis 02/23/24 1011 This is privileged, confidential information intended only for the provider named. Any use or distribution by any person other than this provider is strictly prohibited. If you receive this report in error, please notify us immediately at [phone] and return the original report to us at the address above. Thank-you. JOHN CAT [facility] [address], [place], [address], [facility] 03/02/2024 20:44:36 Problems Name Problem SNOMED Code Status Onset Date Resolution Date Notes Provider Name and Address Organization Details Recorded Time Gastroes ophageal reflux disease without esophagi tis 304422084 Active 201802/12/20 22 - Comments only - Tanya Vela [facility] - [facility] at this time, less chronic in nature than it used to be. Continue Carafate once a day at night and omeprazo le in the morning. 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 It does look as though he has been prescrib ed Adderall and Vyvanse in the past through [facility], and prior to that trialed Stratter a through [facility]. Problem Code: F90.9; Problem Code Type: ICD-10; Not Available [facility] 3 05:43:43 Heart murmur 23030806 Active 2018 Problem Code: R01.1; Problem Code Type: ICD-10; Not Available [facility] 3 05:43:43 Nicotine dependen ce 80595307 Active 201805/23/20 20 - Comments only - Tanya Vela [facility] - Reports feeling closer to wanting to quit, has nicotine replacem ent at home. Problem Code: F17.200; Problem Code Type: ICD-10; Not Available [facility] 3 05:43:43 Exercise induced bronchos pasm 092526017 Active 201808/25/20 22 - Comments only - John George [facility]- - - I do not see any testing to support asthma diagnosi s, however he has been prescrib ed a BILL for some time now. - He does seem to be using it excessiv bri. I have ordered him a spacer and sent a new levalbut akosua prescrip tion. - He does have a long history of tobacco and marijuan a use. We will consider referrin g him for PFTs to differen tiate asthma versus COPD and informed decision s about a maintena nce inhaler if needed. - Problem Code: J45.990; Problem Code Type: ICD-10; Not Available [facility] 3 05:43:43 Psychoac tive substanc e abuse 62477468 Active 201811/21/19 23 - Comments only - John George [facility]- - - Shant is currentl y working with Imelda Negron, drug and alcohol counselo r in [place], and tapering himself off of Suboxone . He is hoping to obtain Vivitrol injectio ns, likely through [facility], and is working with Imelda Negron on this. Problem Code: F19.10; Problem Code Type: ICD-10; Not Available [facility] 3 05:43:43 Pain in thoracic spine 211711107 Active 201808/25/20 22 - Comments only - John George [facility] - - His symptoms seem most consiste nt with SI joint issues/s ciatica. He is managing well with ibuprofe n 600 mg twice daily, which I have refilled for him today. - He is motivate d to try chiropra ctic, and plans to call to get this schedule d. We will follow-u p in 3 weeks to see how he is doing. - Problem Code: M54.9; Problem Code Type: ICD-10; Not Available [facility] 3 05:43:43 Insomnia 715696400 Active 201802/12/20 22 - Comments only - Tanya Vela [facility] - I sent a prescrip tion for Vistaril to be used for sleep, I would consider this a reasonab le option while incarcer ated. Problem Code: G47.00; Problem Code Type: ICD-10; Not Available [facility] 3 05:43:43 Adult health examinat ion Active 202108/25/20 22 - Comments only - John George [facility]- - - Labs drawn today: CMP, lipids, A1c. He has not eaten yet today, but did have coffee with creamer and sugar. -He will be followin g up in 3 weeks, and we can review his results at that time. Problem Code: Z00.00; Problem Code Type: ICD-10; Not Available [facility] 3 05:43:43 Family history of diabetes mellitus 786192503 Active 2021 Problem Code: Z83.3; Problem Code Type: ICD-10; Not Available [facility] 3 05:43:43 Dysphagi a 84726305 Active 01/07/20 23 - Comments only - Jonh George [facility]- - Saw Dr Hawkins 01/05/23. Laryngos cope normal, pt reassure d. Return prn Problem Code: R13.10; Problem Code Type: ICD-10; Not Available [facility] 3 05:43:44 Deviated nasal septum [id number] Active 202201/07/20 23 - Comments only - John George [facility]- - Discusse d with Dr Hawkins 01/05/22; he does not recommen d septopla sty at this time, as pt continue s to smoke and vape, concerne d re: vascular supply given this and hx intranas al drug use. Problem Code: J34.2; Problem Code Type: ICD-10; Not Available [facility] 3 05:43:44 Periapic al abscess 910913220 Completed 202108/05/2022 Problem Code: K04.7; Problem Code Type: ICD-10; Not Available [facility] 3 05:43:44 Counseli ng Completed 201803/23/2019 Problem Code: Z71.89; Problem Code Type: ICD-10; Not Available [facility] 3 05:43:44 Abnormal weight loss 605661217 Completed 201804/25/2020 Problem Code: R63.4; Problem Code Type: ICD-10; Not Available [facility] 3 05:43:44 Dysuria 40592592 Completed 201904/25/2020 Problem Code: R30.0; Problem Code Type: ICD-10; Not Available [facility] 3 05:43:44 Elevated blood-pr essure reading without diagnosi s of hyperten zack 748828720 Completed 201801/06/2019 Problem Code: R03.0; Problem Code Type: ICD-10; Not Available [facility] 3 05:43:44 Venereal disease screenin g Completed 201904/25/2020 Problem Code: Z11.3; Problem Code Type: ICD-10; Not Available [facility] 3 05:43:45 Periapic al abscess 251590261 Completed 202208/28/2023 Problem Code: K04.7; Problem Code Type: ICD-10; Not Available [facility] 4 05:36:51 Excessiv e thirst 61816372 Active 2023 JOHN VEGA-Elaine MARLEY, OPERATIONS INSPECTOR-BC [address], [place], [address] , [facility]. 4 11:51:22 Family history of congesti ve heart failure 978904427 Active [address], [place] [address] , [facility] 4 11:52:25 Family history of Cardiova scular disease 990527796 Active [address], [place] [address] , [facility] 4 11:53:02 Paresthe mayur of foot 020820598 Active [address], [place] [address] , [facility] 4 11:53:41 Restless legs 34078641 Active [address], [place] [address] , [facility] 4 11:53:54 Vitamin D deficien cy 37062670 Active [address], [place] [address] , [facility] 4 18:30:08 Hyperlip idemia 08438253 Active [address], [place] [address] , [facility] 4 18:29:44 Prediabe ara 628394419 Active [address], [place] [address] , [facility] 4 18:29:51 Chronic low back pain 822460584 Active 20[address], [place], [address] , [facility] 4 09:19:29 Multiple joint pain 48407816 Active 2023 JOHN MARLEY [facility] [address], [place], [address] , [facility] 4 16:14:03 Paresthe mayur 97739895 Active 2023 [facility] [address], [place], [address] , [facility] 4 16:14:24 Fatigue 38434940 Active 20[facility] [address], [place], [address] , [facility] 4 16:14:33 Pain in multiple muscles Active 2023 JOHN MARLEY [facility] [address], [place], [address] , [facility] 16:18:51 Problem Notes None recorded. Procedures Surgical History None recorded. Imaging Results Imaging Date Name Status LastModified by [facility] Details LastModified Time 02/23/2024 XR, eye, for foreign body completed [address] [facility] [place], [address] 03/02/2024 20:44:36 02/23/2024 MRI imaging report completed [address] [place], [address] 03/07/2024 17:34:45 02/23/2024 XR, eye, for foreign body completed [facility] [address], [place], [address], 03/02/2024 19:12:00 02/23/2024 MRI, lumbar spine, w/o [facility] [address] [facility] [place], [address], 03/20/2024 13:42:02 04/24/2019 imaging/diagn ostic result completed Information not available 06/13/2024 03:59:29 04/24/2019 imaging/diagn ostic result completed Information not available 06/13/2024 03:59:40 06/02/2019 imaging/diagn ostic result completed Information not available 06/13/2024 03:59:41 12/05/2018 imaging/diagn ostic result completed Information not available 06/13/2024 03:59:43 12/05/2018 imaging/diagn ostic result completed Information not available 06/13/2024 03:59:44 Procedure Notes None recorded. Medical Equipment None Reported. Allergies No known drug allergies Medications Name Sig Start Date Stop Date Status Note LastModified by Organization Details LastModified Time Prescript ion - Renewal 06/24 completed OMEPRAZO LE 40 MG ORAL CAPSULE DELAYED RELEASE Not Available Not Available Not Available Adderall 20 mg tablet Take 1 tab by mouth daily 04/25 completed Fill on or after 11/25/19 Not Available Not Available Not Available acetamino phen 325 mg tablet Take 2 tablet by mouth twice a day active Not Available Not Available No t Available clindamyc in HCl 300 mg capsule Take 1 capsule by mouth three times a day 02/11 completed Not Available Not Available Not Available trazodone 50 mg tablet Take one tablet by mouth daily. 12/12 completed Not Available Not Available Not Available Carafate 1 gram tablet Take 1 tablet by mouth once a day at night 08/05 completed Not Available Not Available Not Available methadone 10 mg/5 mL oral solution 110 mg daily split dosing 57 mg in am and 47 mg at hs. 2018 active [facility] Not Available Not Available Not Avai lable Lidocaine Viscous 2 % mucosal solution apply small amount to affected area as needed for eating, drinking , going to bed. Do not swallow. Do not use for more than 2 days. 11/01/ 2023 11/03 /2023 completed Not Available Not Available Not Available methadone 10 mg tablet 75mg daily 2018 active Not Available Not Available Not Avai lable Nicoderm CQ 21 mg/24 hr daily transderm al patch Apply one patch daily. 03/21 completed Not Available Not Available Not Available clindamyc in HCl 150 mg capsule TAKE THREE CAPSULES BY MOUTH THREE TIMES A DAY 01/31 completed Not Available Not Available Not Available penicilli n V potassium 500 mg tablet TAKE ONE TABLET BY MOUTH FOUR TIMES A DAY 09/07 completed Not Available Not Available Not Available omeprazol e 40 mg capsule,d elayed release Take 1 tablet by mouth once a day 2023 active Not Available Not Available Not Avai lable Adderall XR 20 mg capsule,e xtended release Take 1 capsule by mouth every morning 03/13 completed Not Available Not Available Not Available pramipexo le 0.5 mg tablet TAKE ONE TABLET BY MOUTH AT BEDTIME 03/14 completed Not Available Not Available Not Available meloxicam 7.5 mg tablet Take 1 tab by once daily. 12/12 completed Not Available Not Available Not Available Aerochamb er MV spacer Use 1 spacer as directed with inhaler 2021 active Not Available Not Available Not Avai lable Adderall XR 10 mg capsule,e xtended release Take 1 capsule by mouth once a day 03/13 completed Not Available Not Available Not Available ergocalci ferol (vitamin D2) 1,250 mcg (50,000 unit) capsule TAKE 1 CAPSULE BY MOUTH EVERY WEEK FOR VITAMIN D. DEFICIEN CY active not finished yet as of 06/24/24 Not Available Not Available Not Available ibuprofen 600 mg tablet TAKE ONE TABLET BY MOUTH THREE TIMES A DAY NEEDED active Not Available Not Available No t Available celecoxib 100 mg capsule Take 1 capsule by mouth twice a day as needed 08/05 completed Not Available Not Available Not Available Vistaril 50 mg capsule Take 1 capsule by mouth once a day At bedtime 11/21 completed Not Available Not Available Not Available Ventolin HFA 90 mcg/actua tion aerosol inhaler Inhale 2 puff using inhaler every four to six hours as needed 2021 active Not Available Not Available Not Avai lable buprenorp ramiro 2 mg-naloxo ne 0.5 mg sublingua l tablet PLACE ONE TABLET UNDER THE TONGUE EVERY DAY 01/31 completed Not Available Not Available Not Available buprenorp ramiro 8 mg-naloxo ne 2 mg sublingua l tablet DISSOLVE TWO TABLETS UNDER THE TONGUE ONCE DAILY FOR 7 DASYS 01/31 completed Not Available Not Available Not Available buprenorp ramiro HCl 2 mg sublingua l tablet Take 1 tablet under tongue once a day 08/25 completed Not Available Not Available Not Available buprenorp ramiro HCl 8 mg sublingua l tablet Take 2 tablet under tongue once a day 11/21 completed prescrib ed by [facility] [place] Not Available Not Available Not Available levalbute rol HFA 45 mcg/actua tion aerosol inhaler Inhale 2 puff as directed every six hours as needed 08/26 completed Not Available Not Available Not Available chlorhexi dine gluconate 0.12 % mouthwash Place 15 mL twice a day by mucous membrane route. 2023 active Not Available Not Available Not Avai lable Vitamin B12 3,000mcg daily OTC 06/24 completed Not Available Not Available Not Available Vyvanse 30 mg capsule Take 1 capsule by mouth once a day 10/24 completed Not Available Not Available Not Available Vyvanse 40 mg capsule Take one capsule by mouth daily. 10/18 completed Not Available Not Available Not Available diclofena c 1 % topical gel Apply 1 a small amount to affected area three times a day as needed for pain apply to lower back and hips 11/21 completed Not Available Not Available Not Available Suboxone 2 mg-0.5 mg sublingua l film TAPERING OFF 07/29 completed Not Available Not Available Not Available lidocaine HCl 4 % topical cream Apply up to 3 times daily. 06/21 completed Not Available Not Available Not Available Vitals Date Recorded Body height Body mass index (BMI) Body weight Body temperature Oxygen saturation Oxygen saturation in Arterial blood by Pulse oximetry Heart rate Systolic blood pressure Diastolic blood pressure Provider Name and Address Organization Details Last Updated DateTime 3 186 cm 27.3 kg/m2 08237.2 1 g 97.2 [degF] 97 % 97 % 74 /min 121 mm[Hg] 72 mm[Hg] Ellen Moore MA [facility], [facility] 3 17:24:29 Date Recorded Body height Respiratory rate Body temperature Body mass index (BMI) Body weight Oxygen saturation Oxygen saturation in Arterial blood by Pulse oximetry Heart rate Systolic blood pressure Diastolic blood pressure Provider Name and Address Organization Details Last Updated DateTime 3 186 cm 18 /min 99.7 [degF] 27.3 kg/m2 45708.2 1 g 97 % 97 % 104 /min 163 mm[Hg] 84 mm[Hg] Raquel Hennessy RN [facility], [facility] 3 17:52:33 Date Recorded Body height Body mass index (BMI) Body weight Heart rate Systolic blood pressure Diastolic blood pressure Provider Name and Address Organization Details Last Updated DateTime 4 186 cm 26.6 kg/m2 04261.2 5 g 92 /min 120 mm[Hg] 70 mm[Hg] Lolly webb LPN [facility], [facility] 4 11:10:32 Date Recorded Body height Body mass index (BMI) Body weight Oxygen saturation Oxygen saturation in Arterial blood by Pulse oximetry Heart rate Systolic blood pressure Diastolic blood pressure Provider Name and Address Organization Details Last Updated DateTime 4 186 cm 26.1 kg/m2 34022.8 8 g 96 % 96 % 85 /min 138 mm[Hg] 70 mm[Hg] Max Jones MA [facility], [facility] 4 09:02:51 Date Recorded Body height Heart rate Body mass index (BMI) Body weight Systolic blood pressure Diastolic blood pressure Provider Name and Address Organization Details Last Updated DateTime 4 186 cm 88 /min 26.6 kg/m2 55587.2 5 g 108 mm[Hg] 50 mm[Hg] Lolly webb LPN [facility], [facility] 4 15:34:04 Social History Question Answer Notes LastModified by Organizat ion Details LastModified Time Tobacco Smoking Status Former Smoker Ellen Moore MA [facility], [place] - [facility] 08/18/2023 17:21:56 When Did You Quit Smoking? 1-5yearssinc elastcigaret te Information not available 08/18/2023 What Was The Date Of Your Most Recent Tobacco Screening? 06/24/2024 [email or web address] Information not available 06/24/2024 What Is Your Current Pack Years? 20-29packyea rs [email or web address] Information not available 06/24/2024 At What Age Did You Start Smoking Tobacco? 12 [email or web address] Information not available 06/24/2024 Has Tobacco Cessation Counseling Been Provided? Yes [email or web address] Information not available 06/24/2024 On What Date Was Tobacco Cessation Counseling Provided? 06/24/2024 [email or web address] Information not available 06/24/2024 Do You Or Have You Ever Used Any Other Forms Of Tobacco Or Nicotine? No Information not available 08/18/2023 Sex: Male Functional Status None recorded. Mental Status None recorded. Family History Relationship Description Onset Age of this Age Resolved Age Notes LastModified by Organization Details LastModified Time Maternal Grandfather Family history of malignant neoplasm [email or web address] Not available 2022 03:52:18 Maternal Grandfather No family history of respiratory disease [email or web address] Not available 2022 03:52:19 Maternal Grandfather Family history of diabetes mellitus type 1 [email or web address] Not available 2022 03:52:19 Paternal Grandfather Family history of malignant neoplasm [email or web address] Not available 2022 03:52:19 Maternal Grandmother Family history of heart failure [email or web address] Not available 2022 03:52:19 Maternal Grandmother Family history of diabetes mellitus type 1 [email or web address] Not available 2022 03:52:19 Mother Family history of heart failure [email or web address] Not available 2022 03:52:19 Father Family history of diabetes mellitus type 1 [email or web address] Not available 2022 03:52:19 Medical History No medical history recorded. Immunizations Vaccine Type Date Status Provider Name and Address Organization Details Recorded Time Tdap 03/23/2019 completed Not Available [facility] 06:11:22 Influenza, split virus, quadrivalent, PF 08/16/2019 completed Not Available [facility] 08/07/2023 06:11:22 pneumococcal polysaccharide PPV23 02/08/2019 completed Not Available [facility] 2022 06:11:22 Past Encounters Encounter ID Performer Location Encounter Start Date Encounter Closed Date Diagnosis/Indication Diagnosis SNOMED-CT Code Diagnosis ICD10 Code [id number] JACQUIE KELLY [address] [place] [address] 08/18/2023 17:13:09 08/18/2023 17:44:27 Infection of tooth 198149523 K04.7 [id number] JACQUIE KELLY [address] [place] [address] 09/07/2023 17:35:44 09/07/2023 18:34:47 Periapical abscess 323586042 K04.7 [id number] JOHN MARLEY[address] [address] 02/01/2024 10:55:39 02/01/2024 12:10:31 Chronic low back pain 157846469 M54.50 M54.59 Gastroesop hageal reflux disease without esophagitis 581352218 K21.9 Family his tory of diabetes mellitus 206207456 Z83.3 Excessive thirst 4225715 7 R63.1 Family his tory of Cardiovascular disease 401756379 Z82.49 Paresthesia of foot 3090 39512 R20.2 Restless legs 05565651 G 25.81 Adult heal th examination 138238788 Z00.00 [id number] JOHN MARLEY[address] [address] 03/14/2024 08:43:16 03/14/2024 09:24:35 Chronic low back pain 843289893 M54.50 Health Concerns Section Related Observation LastModified by Organization Detai ls LastModified Time None Recorded Concern Status LastModified by Organization Details LastModified Time None Recorded Advance Directives Directive None Recorded Payers Encounter Date Sequence Insurance Name Policy Number Policy Worthy Covered Member ID Worthy Member ID Guarantor Name 08/18/2023 1 [facility] (MEDICAID) Shant W Call [id number] Shant W Call 09/07/2023 1 [facility] (MEDICAID) Shant W Call [id number] Shant W Call 02/01/2024 1 [facility] (MEDICAID) Shant W Call [id number] Shant W Call 03/14/2024 1 [facility] (MEDICAID) Shant W Call [id number] Shant W Call Notes Date Note Type Note Provider Name and Address Organization Details Recorded Time 08/18/2023 text/html HPI Notes: Liliana aguirre was evaluated through this clinic 07/29/23 for dental infection, started on Pen VK QID, but returned 07/31/23, due to worsening pain. Was switched to clindamycin 450 mg TID X 7 days, which he has completed 08/07/23, which significant improved symptoms while taking. 2-3 days after completing, noted some return of dental pain symptoms again, now present to both sides of the mouth, especially L jaw region, with some mild feeling of swelling to jaw region. He took the previous Rx penicillin that was given at initial visit, and felt minimal improvement. Was also given chlorhexidine rinse, which he has continued to use. Has pending dental appointment September 03 with [facility] for definitive treatment JACQUIE KELLY, TRUMAN [address], [place], [address], [facility]. 08/18/2023 18:05:59 09/07/2023 text/html HPI Notes: Liliana aguirre today presents due to continued dental concerns, with pain, pressure now mostly noted to R upper teeth. No drainage from tooth or surrounding gum. Patient with recent dental visit 09/03/23, had one tooth extracted, (now with sutures in place and healing L lower gum), and fillings/restoratio n to additional teeth. Cannot chew on L side while extraction site is healing, so has been having to chew on R side, causing pain to R upper teeth. He has scheduled dental follow up appt 10/05/22, with plans for extraction of R upper decayed/broken wisdom tooth and 2 other fillings/restoratio n to 2 additional teeth. JACQUIE KELLY, TRUMAN [address], [place], [address], [facility] 09/07/2023 19:03:12 02/01/2024 text/html HPI Notes: Last seen by me 11/21/2022, with two interval [facility] visits for dental pain. At new pt visit 08/25/2022 we did discuss his low back pain Over the past 1.5 years he has seen chiropractors, initially with Dr Jerome, now Dr Madden. Reports muscle tightness in neck and upper back--chiro is helping. Ongoing lumbar pain with bilateral radiculopathy, which began 10-12 years ago. Pain is lumbosacral, radiates into bilateral groin, outer hips, under patellae, down lower legs into dorsal feet. Pain is most pronounced in knees and dorsal feet. Sleeps with heating pad. Today he does endorse saddle numbness. He denies incontinence of stool, but has urinary urgency. Drinks lots of water. He has been managing his pain with ibuprofen 600mg bid, which works OK, but does not get him through the entire day. He would like to take it tid of possible. He reports a tailbone injury age 14-13, never had it checked out. Started with knee pain as a teen, for which he went to PT. Low back pain began around age [age]; by then he was heavy into drugs, and had difficulty getting evaluated for this due to concerns that he was drug seeking. Since his last visit here he has weaned himself off Suboxone (which he initially got through [facility], then through [facility]), had one slip-up since leaving skilled nursing, but otherwise has remained clean with no cravings, and feels very motivated to remain off opioids. Does use MJ daily and microdoses mushrooms for pain relief. (?Still working with Imelda Negron - did not ask today). JOHN CAT, TRUMAN- [address], [place], [address], [facility] 02/03/2024 18:22:28 03/14/2024 text/html HPI Notes: 1m f/ u: Labs drawn 02/01/24 (CMP, lipids, cbcd, Mg, A1c, B12, VitD) and results letter mailed to pt - all wnl except A1c=5.7%, total xihy=470, LDL = 161, Vit D=21.9 (high dose Rx sent x 16w). Lumbar MRI done 02/23/24: L5-S1 central disc herniation which mildly impresses upon the left and right S1 nerve roots. Small diffuse disc bulge at L4-L5 without significant central spinal canal or neural foraminal stenosis. -- He has seen PT at [facility] once so far, had to reschedule his follow up, and has not received a call back. He plans to follow up. -- Darryl states he did receive his lab results letter, and was able to review MRI on portal. He misread lab results letter, and has been taking B12 supplement, which he does not need (B12 = 836). He has been taking high dose vit D. -- Back pain persists, and he is frustrated that there doesn't seem to be anything that can help him. JOHN VEGA-KEITH, OPERATIONS INSPECTOR- [address], [place], [address], [facility]. 03/20/2024 16:34:12
--- OUTSIDE RECORDS SUMMARY | 2024-06-24 19:10 | XMS_ITS | Encounter Summary ---
Author Organization [facility]ly [facility], Later [facility] Address [facility] [place] [address] Care Team Providers Care Mcat Tutor Name Role Phone Nunu Saavedra MD Primary Care Provider [phone] Encounter Details Date Type Department Care Team (Late st Contact Info) Description 06/02/2019 Ancillary Procedure Radiology Library at [facility] [place] [address] Nunu Saavedra MD [address] [place], [place] [address] Social History Tobacco Use Types Packs/Day Years Used Date Smoking Tobacco: Never Assessed Sex and Gender Information Value Date Recorded Sex Assigned at Not on file Gender Identity Not on file Sexual Orientation Not on file documented as of this encounter Plan of Treatment Not on file documented as of this encounter Procedures Procedure Name Priority Date/Time Associated Diagnosis Comments FILM LIBRARY STORAGE ONLY DX SPINE Routine 06/02/2019 12:00 AM EDT documented in this encounter Results * Film Library- Storage Only DX Spine (06/02/2019 12:00 AM EDT) Narrative [facility] - 05/24/2020 9:14 PM EDT This exam is auto-finalizing. It's purpose is for storage only. Nunu Saavedra MD IMG FILM LIBRARY ORD ERABLES [facility] [place], [place] documented in this encounter Visit Diagnoses Not on filedocumented in this encounter Care Teams Mcat Tutor Relationship Specialty Start Date End Date Nunu Saavedra MD [address] [place] [address] PCP - General 08/20/10 05/27/20 documented as of this encounter
--- OUTSIDE RECORDS SUMMARY | 2024-06-24 19:10 | XMS_ITS | Encounter Summary ---
Author Organization [facility] Address [address] [place] [address] Care Team Providers Care Field Human Resources Manager Name Role Phone Quentin Friend MD, Nunu Primary Care Provider Encounter Details Date Type Department Care Team (Latest Contact Info) Description 12/18/2014 13:21 EDT - 12/18/2014 23:59 EDT Hospital Encounter [address] [address] Unknown, Provider, Discharge Disposition: Home or Self Care Social History Tobacco Use Types Packs/Day Years Used Date Smoking Tobacco: Never Assessed Sex and Gender Information Value Date Recorded Sex Assigned at Not on file Gender Identity Not on file Sexual Orientation Not on file documented as of this encounter Discharge Disposition Disposition Code Departure Means Destination Home or Self Retirement documented in this encounter Plan of Treatment Not on file documented as of this encounter Visit Diagnoses Not on filedocumented in this encounter Care Teams Field Human Resources Manager Relationship Specialty Start Date End Date Nunu Saavedra [place] [address] PCP - General 03/26/11 documented as of this encounter
--- OUTSIDE RECORDS SUMMARY | 2024-06-24 19:10 | XMS_ITS | Encounter Summary ---
Author Organization [facility] Address [facility] [place] [address] Care Team Providers Care Loom Repairer Name Role Phone Nunu Saavedra MD Primary Care Provider [phone] Encounter Details Date Type Department Care Team (Late st Contact Info) Description 08/12/2015 Ancillary Procedure Radiology Library at [facility] [place] [id number] Nunu Saavedra MD [address], [place] [address] Social History Tobacco Use Types Packs/Day Years [...] FILM LIBRARY STORAGE ONLY DX SPINE Routine 08/12/2015 12:00 AM EST documented in this encounter Results * Film Library- Storage Only DX Spine (08/12/2015 12:00 AM EST) Narrative [facility] - 05/24/2020 9:12 PM EDT This exam is auto-finalizing. It's purpose is for storage only. Nunu Saavedra MD IMG FILM LIBRARY ORD ERABLES [place], [place] documented in this encounter Visit Diagnoses Not on filedocumented in this encounter Care Teams Loom Repairer Relationship Specialty Start Date End Date Nunu Saavedra MD [address] [place] [address] PCP - General 08/20/10 05/27/20 documented as of this encounter
--- OUTSIDE RECORDS SUMMARY | 2024-06-24 19:10 | XMS_ITS | Continuity of Care Document ---
Author Organization [facility] Address [address] [place] [address] Care Team Providers Care Public Safety Director Name Role Phone JOHN HERNANDEZ Primary Care Physic shaheed Encounter [facility] FIN NBR [id number] Date(s): 05/03/24 - 05/03/24 [facility] [address] [place], [place] [address] Encounter Diagnosis Lumbar disc herniation(Discharge Diagnosis) - 05/03/24 Lumbar radicular pain(Discharge Diagnosis) - 05/03/24 Low back pain(Discharge Diagnosis) - 05/03/24 Discharge Disposition: Home or Self Care Attending Physician: Jinny Thompson DO Referring Physician: JOHN HERNANDEZ Allergies, Adverse Reactions, Alerts No Known Medication Allergies Assessment and Plan Extracted from: Title:[facility] Office Visit Note - Pain Management A uthor:Jinny Thompson DO Date:05/03/24 Low back pain??M54.50 ?? Lumbar disc herniation??M51.26 Ordered: Surgical Procedure Booking Request [facility], 05/03/24 16:34:00 EDT, lumbar disc herniation, Lumbar disc herniation, Outpatient, TLESI, Primary Procedure, 45, Special equipment needed (include C-Arm requests)?, Local, 0, Jinny Thompson DO, CONSENT TO READ: L5-S1 Lumbar Translaminar Epidural Shankar... ?? Lumbar radicular pain??M54.16 ? Shant is here for evaluation of chronic low back pain with radiation to bilateral legs. ??He states his symptoms have been ongoing for at least 10 years.?? He underwent a lumbar??MRI on 02/23/2024??which shows a central disc herniation at L5-S1 with??mild??impingement of the traversing S1 nerve roots.?? There is also a small disc bulge at L4-5 without significant canal or foraminal stenosis. ?? His back and leg symptoms appear consistent with the findings at L5-S1.?? The radiology report was reviewed, however, the images were not available??during the time of the office visit. ??We have requested the images to be sent to PACS??from [facility].? He states he has participated in physical therapy in the past, with limited benefit, and he recently had 1 session of PT??with plans to continue physical therapy??if he is able to get some days off from work??to attend additional PT sessions. ? Based on the radiology report, he is a candidate for a lumbar epidural steroid injection. ??Risks and potential benefits were reviewed. ??He would like to proceed with an injection.?? Order placed. ??He will not be able to be scheduled for the procedure until the images have been received from [facility] as they will be needed for the procedure. ? Follow up: for lumbar DONOVAN? 45+ minutes spent in this encounter including face to face time, chart review, orders,??documentation. ? Future Appointments Medications acetaminophen 325 mg oral capsule 650 mg = 2 cap, Oral, BID, 0 Refill(s) Start Date: 05/02/24 Status: Ordered ibuprofen 600 mg oral tablet 600 mg = 1 tab, Oral, TID, 0 Refill(s) Start Date: 05/02/24 Status: Ordered omeprazole 40 mg oral delayed release capsule 40 mg = 1 cap, Oral, Daily, # 30 cap, 0 Refill(s) Start Date: 05/02/24 Status: Ordered pramipexole 0.5 mg oral tablet 0 Refill(s) Start Date: 05/02/24 Status: Ordered Ventolin HFA 90 mcg/inh inhalation aerosol 0 Refill(s) Start Date: 05/02/24 Status: Ordered Problem List Condition Confirmation Course Effective Dates Status Health St atus Informant ADHD Confirmed Active Deviated nasal septum Confirmed Active Dysphagia Confirmed Active Excessive thirst Confirmed Active Exercise induced bronchospasm Confirmed Active GERD (gastroesophageal reflux disease) Confirmed Active Heart murmur Confirmed Active Insomnia Confirmed Active Nicotine dependence Confirmed Active Pain in thoracic spine Confirmed Active Paresthesia of foot Confirmed Active Psychoactive substance abuse Confirmed Active Restless legs Confirmed Active Vital Signs Most recent to oldest [Reference Range]: 1 Peripheral Pulse Rate [60-100 bpm] 71 bp m (05/03/24 4:23 PM) Blood Pressure [90-140/60-90 mmHg] 112/5 0mmHg (05/03/24 4:23 PM) Mean Arterial Pressure, Cuff [65-140 mmH g] 71 mmHg (05/03/24 4:23 PM) Weight 90.54 kg (05/03/24 4:23 PM) Weight Measured (lbs) 199.606 lb (05/03/24 4:23 PM) Weight Dosing 90.540 kg (05/03/24 4:23 PM) [place] Body Weight Calculated 79.9 kg (05/03/24 4:23 PM) Height 185.42 cm (05/03/24 4:23 PM) Height/Length Measured (inches) 73 inch (05/03/24 4:23 PM) BSA Measured 2.16 m2 (05/03/24 4:23 PM) Body Mass Index 26.33 kg/m2 (05/03/24 4:23 PM) Social History Social History Type Response Tobacco Former tobacco user Tobacco Use:. Sex Physician Outpatient Note * Jinny Thompson, DO: PERFORM, MODIFY Event Display: Office Clinic Note Physician Authored Date: [id number] JESÚS ZAMANMARA Ortiz :1995 Age:29 years Sex:Male Visit Date:05/03/2024 Primary Care Physician: JOHN HERNANDEZ Chief Complaint chronic lower back pain History of Present Illness ?? Low back pain predominantly on right side 60% right, 40% of pain on left ongoing x 10 years pain radiates to hips, posterolateral thighs and calves to the anterior ankles?? can also experience pain along the medial thighs intermittent numbness in legs and??feet - mostly occurs with prolonged sitting pain worse with sitting, standing, lying down, driving ?? 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 smoke cannabis reports previous drug addiction x 12 years, including heroin - he reports that he went to [facility] a period time, was on methadone x 4 years,??was on Suboxone, he has been off Suboxone since June 2023 and states he is doing well without??relapses ?? 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 BP:??112/50?? SpO2:??96%?? HT:??185.42??cm?? WT:??90.54??kg?? BMI:??26.33?? BSA:??2.16?? General: no acute distress HEENT: Facial movements symmetric Resp: Breathing comfortably, unlabored respirations Lumbar ROM: Flexion to 90 degrees, extension to??10 degrees.?? mild discomfort both directions Neuro: Motor:Strength is 5 out of 5 lower extremities bilaterally HF KE AD EHL PF Sensation:Intact to light touch lower extremities bilaterally Reflexes: 2+ bilateral patellar, achilles.??No clonus. Provocative tests: Straight leg raise appears negative Hips: No groin pain with internal or external rotation Gait: steady?? Assessment/Plan Low back pain??M54.50 ?? Lumbar disc herniation??M51.26 Ordered: Surgical Procedure Booking Request [facility], 05/03/24 16:34:00 EDT, lumbar disc herniation, Lumbar discherniation, Outpatient, TLESI, Primary Procedure, 45, Special equipment needed (include C-Arm requests)?, Local, 0, Jinny Thompson, DO, CONSENT TO READ: L5-S1 Lumbar Translaminar Epidural Shankar... ?? Lumbar radicular pain??M54.16 ? Shant is here for evaluation of chronic low back pain with radiation to bilateral legs. ??He states his symptoms have been ongoing for at least 10 years.?? He underwent a lumbar??MRI on 02/23/2024??which shows a central disc herniation at L5-S1 with??mild??impingement of the traversing S1 nerve roots.?? There is also a small disc bulge at L4-5 without significant canal or foraminal stenosis. ?? His back and leg symptoms appear consistent with the findings at L5-S1.?? The radiology report was reviewed, however, the images were not available??during the time of the office visit. ??We have requested the images to be sent to PACS??from [facility].? He states he has participated in physical therapy in the past, with limited benefit, and he recently had 1 session of PT??with plans to continue physical therapy??if he is able to get some days off from work??to attend additional PT sessions. ? Based on the radiology report, he is a candidate for a lumbar epidural steroid injection. ??Risks and potential benefits were reviewed. ??He would like to proceed with an injection.?? Order placed. ??He will not be able to be scheduled for the procedure until the images have been received [facility] will be needed for the procedure. ? Follow up: for lumbar DONOVAN? 45+ minutes spent in this encounter including face to face time, chart review, orders,??documentation. Problem List/Past Medical History Ongoing ADHD Deviated nasal septum Dysphagia Excessive thirst Exercise induced bronchospasm GERD (gastroesophageal reflux disease) Heart murmur Insomnia Nicotine dependence Pain in thoracic spine Paresthesia of foot Psychoactive substance abuse Restless legs Historical No qualifying data Medications acetaminophen 325 mg oral capsule, 650 mg= 2 cap, Oral, BID ibuprofen 600 mg oral tablet, 600 mg= 1 tab, Oral, TID omeprazole 40 mg oral delayed release capsule, 40 mg= 1 cap, Oral, Daily pramipexole 0.5 mg oral tablet Ventolin HFA 90 mcg/inh inhalation aerosol Allergies No Known Medication Allergies Social History Electronic Cigarette/Vaping Electronic Cigarette Use: Never. Tobacco Former tobacco user Tobacco Use:. Electronically Signed on 05/03/2024 16:38 EDT Jinny Thompson DO Patient Care team information Care Team Personnel Name: JOHN HERNANDEZ Position: No Access Member Role: Primary Care Physician Address: Address: [address] [place], [place] [address]
--- OUTSIDE RECORDS SUMMARY | 2024-06-24 19:10 | XMS_ITS | Continuity of Care Document ---
Author Organization [facility] Address [address] [place] [address] Care Team Providers Care Wireline Supervisor Name Role Phone RAMYA TEXTILE TECHNICAL OFFICER-BCJOHN Primary Care Physic shaheed Encounter [facility] FIN NBR [id number] Date(s): 06/09/24 - 06/09/[address] [address]- Encounter Diagnosis Neck pain(Discharge Diagnosis) - 06/09/24 Left arm numbness(Discharge Diagnosis) - 06/09/24 Lumbar disc herniation(Discharge Diagnosis) - 06/09/24 Lumbar radiculopathy(Discharge Diagnosis) - 06/09/24 Discharge Disposition: Home or Self Care Attending Physician: Jinny Thompson DO Admitting Physician: Jinny Thompson DO Referring Physician: Jinny Thompson DO Allergies, Adverse Reactions, Alerts No Known Medication Allergies Assessment and Plan Extracted from: Title:Op Note / Discharge Summary Author:Pema Dutta i Date:06/09/24 Pt is neurologically intact, vital signs stable. Pt denies any chest pain, shortness of breath, nausea, headache, blurred vision, dizziness or any new numbness or tinging in extremities. Pt has been evaluated and cleared for discharge by pain provider. All discharge paperwork has been reviewed with patient who verbalizes understanding of all information to include follow up appt. date and time. Pt is aware to call the clinic for any abnormal symptoms or changes in their condition for further guidance and instruction, pt verbalizes understanding of how to contact clinic should they need to.?? Future Appointments Future Scheduled Tests Radiology* MRI Spine Cervical w/o Contrast 06/21/24 Medications acetaminophen 325 mg oral capsule 650 [...] Most recent to oldest [Reference Range]: 1 2 3 Temperature Temporal Artery [36-38 Deg C] 36.5 Deg C (06/09/24 12:51 PM) Peripheral Pulse Rate [60-100 bpm] 68 bpm (06/09/24 2:05 PM) 73 bpm (06/09/24 2:01 PM) 72 bpm (06/09/24 1:59 PM) Respiratory Rate [-24 br/min] 18 br/min (06/09/24 12:51 PM) Blood Pressure [90-140/60-90 mmHg] 126/78mmHg (06/09/24 2:05 PM) 142/99mmHg *HI* (06/09/24 2:01 PM) 139/87mmHg (06/09/24 1:59 PM) Weight 90.72 kg (06/09/24 12:51 PM) Weight Dosing 90.720 kg (06/09/24 12:51 PM) Height 185.42 cm (06/09/24 12:51 PM) Body Mass Index 26.39 kg/m2 (06/09/24 12:51 PM) Social History Social History Type Response Tobacco Former tobacco user Tobacco Use:. Sex Sex Representation Male (finding) Discharge instructions * Event Display: Discharge Instructions History and physical note * Jinny DelPrato, DO: PERFORM, MODIFY Event Display: History and Physical Update Authored Date: [id number] SHANT ZAMAN :1995 Age:29 years Sex:Male Visit Date:06/09/2024 Primary Care Physician: JOHN HERNANDEZ Chief Complaint relieving my body pain and discomfort ?? pt denies having any infections in the last 14 days History of Present Illness ?? Shant has a history of low back pain with radiation to both legs.?? The pain radiates down the posterior thighs and calves.?? States that the pain is fairly equal in both legs but perhaps slightly more bothersome on the right side.??At night when laying flat, symptoms can be slightly more bothersome in left leg. ??There is numbness??also in the left??leg.?? He denies any weakness. ??He would like to trial a lumbar epidural steroid injection for his back and leg pain. ?? He states that he is also experiencing recent??left??arm and hand numbness/tingling as well as??a sensation of facial numbness on the left side.?? He has noticed the numbness for a few weeks.?? Hedenies any??arm pain,??however he does??report neck pain which is rated 8/10. ??He denies any recent injuries.?? He denies any problems with balance or recent falls. ??No changes in his bowel or bladder control. Review of Systems Constitutional:?No fevers/chills HEENT: Denies headaches, vision changes, difficulty with speech or trouble swallowing Respiratory:?No shortness of breath Cardiovascular:?No Chest pain Gastrointestinal:?No bowel dysfunction Genitourinary:?No bladder dysfunction Musculoskeletal:??Positive for back pain. Also reports neck pain Neurological: No new weakness,??+intermittent numbness/tingling in left greater than right leg. Recent numbness left face and arm Physical Exam Vitals & Measurements T:??36.5?C ??(Temporal Artery)?? HR:??66??(Peripheral)?? RR:??18?? BP:??106/69?? SpO2:??100%?? HT:??185.42??cm?? WT:??90.72??kg?? BMI:??26.39?? Pain Score:??8?? O2 Therapy:??Room air?? General: NAD HEENT: facial movements symmetric. Sensation mildly reduced V1, V2, V3 distribution in left face compared to right Resp: Breathing comfortable, unlabored respirations Cardiac: Regular rate Motor: 5/5 strength with HF, KE, AD, EHL, PF. Strength also noted to be 5/5 with SA, EF, EE, WE, finger flexion and??finger abduction bilaterally Sensation: sensation slightly diminished left lateral calf and big toe compared to right, otherwiseappears intact in lower extremities bilaterally. Sensation slightly reduced left medial and lateralforearm and left thumb compared to right. Reflexes: Molina's negative bilaterally ?? Assessment/Plan Left arm numbness??R20.0 Ordered: MRI Spine Cervical w/o Contrast, 06/09/24 14:29:00 EDT, BELL, Reason: neck pain, left arm numbness,No, No, Transport Mode: Ambulatory, Neck pain Left arm numbness ?? Lumbar disc herniation??M51.26 ?? Lumbar radiculopathy??M54.16 ?? Neck pain??M54.2 Ordered: MRI Spine Cervical w/o Contrast, 06/09/24 14:29:00 EDT, BELL, Reason: neck pain, left arm numbness,No, No, Transport Mode: Ambulatory, Neck pain Left arm numbness ? There are no contraindications to moving forward with the planned lumbar epidural steroid injectiontoday to manage his back and leg symptoms. ? In terms of the neck pain,??he is describing some radicular symptoms with numbness and tingling intermittently into the??left upper extremity, primarily in the left hand. ??On exam, strength is intact, however sensation is mildly reduced??in the forearm and left thumb.?? Will order a cervical MRI to further evaluate??his neck and arm symptoms.?? Advised??that he follow-up with his primary care physician regarding the facial numbness as this is not??likely related to the cervical spine.?? There are no red flag signs/symptoms at this time??and his symptoms have been stable over several weeks, not progressive in nature. ??He agrees to follow-up with his PCP.? Advised Shant that if he does experience any progressive symptoms prior to his follow up appointment with his PCP including headache, changes in vision, trouble speaking or swallowing,??arm or leg weakness, changes in bowel or bladder control, he should seek urgent evaluation in??in the emergency department.? Images MRI lumbar spine from 01/2024 reviewed ? In addition to the procedure performed today,??at least 15 additional minutes were spent discussing his neck and arm symptoms,??providing counseling and??placing orders (cervical MRI) and documentation. Problem List/Past Medical History Ongoing ADHD Deviated [...] tobacco user Tobacco Use:. Electronically Signed on 06/09/2024 14:37 EDT Jinny Thompson DO Discharge summary * Pema Fonseca: PERFORM Event Display: Discharge Note Authored Date: [id number] SHANT ZAMAN :1995 Age:29 years Sex:Male Visit Date:06/09/2024 Primary Care Physician: JOHN HERNANDEZ Date/Time Surgery Performed 06/09/2024 Indication for Surgery Operation Lumbar Translaminar Epidural (DONOVAN), L5-S1 Lumbar Translaminar Epidural Steroid Injection Surgeon(s) Jinny Thompson, DO (Surgeon - Primary) Physical Exam Vitals & Measurements T:??36.5?C ??(Temporal Artery)?? HR:??68??(Peripheral)?? RR:??18?? BP:??126/78?? SpO2:??100%?? HT:??185.42??cm?? WT:??90.72??kg?? BMI:??26.39?? Pain Score:??8?? O2 Therapy:??Room air?? Medications Inpatient No active inpatient medications Home acetaminophen 325 mg oral capsule, 650 mg= 2 cap, Oral, BID ibuprofen 600 mg oral tablet, 600 mg= 1 tab, Oral, TID omeprazole 40 mg oral delayed release capsule, 40 mg= 1 cap, Oral, Daily pramipexole 0.5 mg oral tablet Ventolin HFA 90 mcg/inh inhalation aerosol Social History Electronic Cigarette/Vaping Electronic Cigarette Use: Never. Tobacco Former tobacco user Tobacco Use:. Discharge Plan Patient Discharge Condition Pt is neurologically intact, vital signs stable. Pt denies any chest pain, shortness of breath, nausea, headache, blurred vision, dizziness or any new numbness or tinging in extremities. Pt has been evaluated and cleared for discharge by pain provider. All discharge paperwork has been reviewed with patient who verbalizes understanding of all information to include follow up appt. date and time. Pt is aware to call the clinic for any abnormal symptoms or changes in their condition for further guidance and instruction, pt verbalizes understanding of how to contact clinic should they need to.?? Medication Reconciliation Unchanged acetaminophen (acetaminophen 325 mg oral capsule)2 Capsules Oral (given by mouth) 2 times a day. ?? albuterol (Ventolin HFA 90 mcg/inh inhalation aerosol) ?? ibuprofen (ibuprofen 600 mg oral tablet)1 tab Oral (given by mouth) 3 times a day. ?? omeprazole (omeprazole 40 mg oral delayed release capsule)1 Capsules Oral (given by mouth) every day. ?? pramipexole (pramipexole 0.5 mg oral tablet) Electronically Signed on 06/09/2024 14:11 EDT Pema Fonseca Patient Care team information Care Team Personnel Name: JOHN HERNANDEZ Position: No Access Member Role: Primary Care Physician Address: [address] Insurance Providers Guarantor name: SHANT ZAMAN Health Plan Information #: 1 Payer: [place] Member Number: [id number] Policy Number: NA Health Plan Information #: 2 Payer: [place] Member Number: [id number] Policy Number: NA
--- OUTSIDE RECORDS SUMMARY | 2024-06-24 19:10 | XMS_ITS | Continuity of Care Document ---
Author [place] [facility] [facility] Address [address] [place] [address] Care Team Providers Care Laboratory Analyst Name Role Phone RAMYA COMMANDING OFFICER MOTORIZED SQUAD-BCJOHN Primary Care Physic shaheed Encounter [facility] FIN NBR [id number] Date(s): 06/21/24 - 06/21/[address] [address]- Discharge Disposition: Home or Self Care Attending Physician: Jinny Thompson DO Admitting Physician: Jinny Thompson DO Referring Physician: Jinny Thompson DO Allergies, Adverse Reactions, Alerts No Known Medication Allergies Assessment and Plan Future Appointments Medications acetaminophen 325 mg oral [...] abuse Confirmed Active Restless legs Confirmed Active Results Radiology Reports * Exam Date Time Procedure Performing Provider Status 06/21/24 7:46 AM MRI Spine Cervical w/o Contrast Otonielkristal mcgee, Swati; Auth (Verified) Notes: (MRI Spine Cervical w/o Contrast) Reason For Exam: neck pain, left arm numbness MRI Spine Cervical w/o Contrast EXAM DESCRIPTION: MRI Spine Cervical w/o Contrast 06/21/2024 INDICATION: NECK PAIN, LEFT ARM NUMBNESS TECHNIQUE: Multiplanar MRI examination of the cervical spine utilizing T1, fat-suppressed T2 and fast STIR technique. Patient motion artifact limits evaluation. COMPARISON: None FINDINGS: Mild reversal of cervical lordosis in the upper cervical region, likely positional. C2-3: No focal disc protrusion, significant spinal stenosis or neural foraminal narrowing. C3-4: Broad-based right paracentral disc osteophyte complex with right uncovertebral spurring. Moderate right lateral recess stenosis with significant right neural foraminal narrowing. No significant central stenosis with AP spinal canal diameter of 9.7 mm. No left neural foraminal narrowing C4-5: No focal disc protrusion, significant spinal stenosis or neural foraminal narrowing. C5-6: No focal disc protrusion, significant spinal stenosis or neural foraminal narrowing. C6-7: Mild central disc osteophyte complex. No significant stenosis or cord encroachment with AP spinal canal diameter of 9.6 mm. No neural foraminal narrowing C7-T1: No focal disc protrusion, significant spinal stenosis or neural foraminal narrowing. No definite intrinsic signal abnormality within the cervical spinal cord to suggest edema or myelomalacia with no evidence of syrinx. Visualized posterior fossa structures are unremarkable No suspicious regional marrow lesions. No vertebral body compression deformity in the cervical region Paraspinal soft tissues are unremarkable. IMPRESSION: Right paracentral disc osteophyte complex and right uncovertebral spurring at C3-4 resulting in moderate right lateral recess stenosis and significant right neural foraminal narrowing. No significant central stenosis or cord encroachment. Please see above discussion for individual level description. JOB #: [id number] Final Signed by: Donnie Swenson MD Signed (Electronic Signature): 06/21/2024 9:20 am Social History Social History Type Response Tobacco Former tobacco user Tobacco Use:. Sex Sex Representation Male (finding) Patient Care team information Care Team Personnel Name: JOHN HERNANDEZ Position: No Access Member Role: Primary Care Physician Address: [facility] [address] [facility] [address] [place] [address] Insurance Providers Guarantor name: CELE ZAMAN Health Plan Information #: 1 Payer: [place] Member Number: [id number] Policy Number: NA Health Plan Information #: 2 Payer: [place] Member Number: [id number] Policy Number: NA
--- OUTSIDE RECORDS SUMMARY | 2024-06-24 19:10 | XMS_ITS | Encounter Summary ---
Author Organization [facility] [place] Address [address] [place] [address] Care Team Providers Care Change Room Attendant Name Role Phone Quentin Friend MD, Nunu Primary Care Provider [phone] Encounter Details Date Type Department Care Team (Late st Contact Info) Description 11/15/2019 Lab Requisition [facility] Pathology & Laboratory Medicine - [address] [address] Unknown, Provider, Social History Tobacco Use Types Packs/Day Years Used Date Smoking Tobacco: Never Assessed Sex and Gender Information Value Date Recorded Sex Assigned at Not on file Gender Identity Not on file Sexual Orientation Not on file documented as of this encounter Plan of Treatment Not on file documented as of this encounter Procedures Procedure Name Priority Date/Time Associated Diagnosis Comments HEPATITIS C AB W REFLEX TO HCV RNA BY PCR Routine 11/15/2019 6:00 EST HEPATITIS B SURFACE ANTIGEN Routine 11/15/2019 6:00 EST documented in this encounter Results * HEPATITIS B SURFACE ANTIGEN (11/15/2019 6:00 EST) Hep B Surface Ag Negative Negative 11/16/2019 11:02 EST [facility] Blood VENOUS BLOOD / Unknown 11/15/2019 6:00 EST 11/15/2019 21:42 EST Provider Unknown CHEMISTRY & BLOOD GA S ORDERABLES [facility] [address] [place] [address] * HEPATITIS C AB W REFLEX TO HCV RNA BY PCR (11/15/2019 6:00 EST) Hep C Antibody Negative Negative 11/16/2019 11:39 EST [facility] Blood VENOUS BLOOD / Unknown 11/15/2019 6:00 EST 11/15/2019 21:41 EST Provider Unknown CHEMISTRY & BLOOD GA S ORDERABLES Performing Organization Address City/State/[facility] Co de Phone Number [facility] [address] [place] [address] documented in this encounter Visit Diagnoses Not on filedocumented in this encounter Care Teams Change Room Attendant Relationship Specialty Start Date End Date Nunu Saavedra MD [address] [place] [address] PCP - General 03/26/11 documented as of this encounter
--- OUTSIDE RECORDS SUMMARY | 2024-06-24 19:10 | XMS_ITS | Encounter Summary ---
Author Organization [facility] Address [address] [place] [address] Care Team Providers Care Institutional Cook Name Role Phone Quentin Friend MD, Nunu Primary Care Provider [phone] Encounter Details Date Type Department Care Team (Late st Contact Info) Description 10/25/2021 Lab Requisition [facility] Pathology & Laboratory Medicine - [facility] [address] [place] [address] Outr Resulting Lab, Provider Social History Tobacco Use Types Packs/Day Years Used Date Smoking Tobacco: Never Assessed Sex and Gender Information Value Date Recorded Sex Assigned at Not on file Gender Identity Not on file Sexual Orientation Not on file documented as of this encounter Plan of Treatment Not on file documented as of this encounter Procedures Procedure Name Priority Date/Time Associated Diagnosis Comments ZZCOVID-19 TEST [facility] PCR Today 10/24/2021 16:00 EST COVID-19 TESTING Routine 10/24/2021 16:0 0 EST documented in this encounter Results * COVID-19 TEST [facility] PCR (10/24/2021 16:00 EST) Swab 10/24/2021 16:0 0 EST 10/25/2021 15:50 EST Provider Outr Resulting Lab MICROBIOLOGY - GENERAL ORDERABLES [facility] [address] [place] [address] * COVID-19 TESTING (10/24/2021 16:00 EST) COVID-19 rt-PCR Result Negative Negative 10/26/2021 11:06 EST [facility] Comment: This test has not been FDA cleared or approved. This test has been authorized by FDA under an EUA for use by authorized laboratories. This test has been authorized only for detection of nucleic acid from 2019-nCoV, not for any other viruses or pathogens. This test is only authorized for the duration of the declaration that circumstances exist justifying the authorization of emergency use of in vitro diagnostic tests for detection and/or diagnosis of 2019-nCoV under section 564(b)(1) of Act, 21 U.S.C ?? 360bbb-3(b) (1), unless the authorization is terminated or revoked sooner. Negative results do not preclude 2019-nCoV infection and should not be used as the sole basis for treatment or other patient management decisions. Negative results must be combined with clinical observations, patient history, and epidemiological information. Testing was performed using the sara SARS-CoV-2 assay ([employer] on the Sara 6800 System Performing Lab Sara [address] [facility] 10/26/2021 11:06 EST [facility] Swab 10/24/2021 16:0 0 EST 10/25/2021 15:50 EST Provider Outr Resulting Lab MICROBIOLOGY - GENERAL ORDERABLES [facility] [address] [place] [address] documented in this encounter Visit Diagnoses Not on filedocumented in this encounter Care Teams Institutional Cook Relationship Specialty Start Date End Date Nunu Saavedra [place] [address] PCP - General 03/26/11 documented as of this encounter
--- OUTSIDE RECORDS SUMMARY | 2024-06-24 19:10 | XMS_ITS | Encounter Summary ---
Author Organization [facility] Address [address] [place] [address] Care Team Providers Care Concreter Name Role Phone Quentin Friend MD, Nunu Primary Care Provider [phone] Encounter Details Date Type Department Care Team (Late st Contact Info) Description 11/18/2019 Lab Requisition [facility] Pathology & Laboratory Medicine - [address] [address] Unknown, Provider, Social History Tobacco Use Types Packs/Day Years Used Date Smoking Tobacco: Never Assessed Sex and Gender Information Value Date Recorded Sex Assigned at Not on file Gender Identity Not on file Sexual Orientation Not on file documented as of this encounter Plan of Treatment Not on file documented as of this encounter Procedures Procedure Name Priority Date/Time Associated Diagnosis Comments CHLAMYDIA/N. GONORRHOEAE AMPLIFIED NUCLEIC ACID Routine 11/18/2019 7:52 EST documented in this encounter Results * CHLAMYDIA/N. GONORRHOEAE AMPLIFIED RNA (11/18/2019 7:52 EST) Neisseria gonorrhoeae Result Negative Negative 11/21/2019 13:19 EST [facility] Chlamydia trachomatis Result Negative Negative 11/21/2019 13:19 EST [facility] Urine URINE / Unknown 11/18/2019 7 :52 EST 11/18/2019 16:29 EST Provider Unknown MICROBIOLOGY - GENER AL ORDERABLES [facility] [address] [place] [address] documented in this encounter Visit Diagnoses Not on filedocumented in this encounter Care Teams Concreter Relationship Specialty Start Date End Date Nunu Saavedra MD [address] [place] [address] PCP - General 03/26/11 documented as of this encounter
--- OUTSIDE RECORDS SUMMARY | 2024-06-24 19:10 | XMS_ITS | Encounter Summary ---
Author Organization [facility] Address [address] [place] [address] Care Team Providers Care Senior Investment Manager Name Role Phone Quentin Friend MD, Nunu Primary Care Provider [phone] Encounter Details Date Type Department Care Team (Late st Contact Info) Description 11/15/2019 Lab Requisition [facility] Pathology & Laboratory Medicine - [address] [address] Unknown, Provider, Social History Tobacco Use Types Packs/Day Years Used Date Smoking Tobacco: Never Assessed Sex and Gender Information Value Date Recorded Sex Assigned at Not on file Gender Identity Not on file Sexual Orientation Not on file documented as of this encounter Plan of Treatment Not on file documented as of this encounter Procedures Procedure Name Priority Date/Time Associated Diagnosis Comments HIV 1/2 ANTIGEN AND ANTIBODY, 4TH GENERATION Routine 11/15/2019 6:00 EST documented in this encounter Results * HIV 1/2 ANTIGEN AND ANTIBODY, 4TH GENERATION (11/15/2019 6:00 EST) HIV 1 and 2 Antibody/p24 Antigen, 4th Generation Negative Negative 11/16/2019 11:36 EST [facility] Comment: If acute HIV-1 infection is suspected in a high risk ??patient, submit plasma specimen for HIV-1 RNA quantitation test. Fourth Generation assay performed on the Siemens Centaur. Blood VENOUS BLOOD / Unknown 11/15/2019 6:00 EST 11/15/2019 21:41 EST Provider Unknown IMMUNOLOGY AND SEROL OGY ORDERABLES [facility] [address] [place] [address] documented in this encounter Visit Diagnoses Not on filedocumented in this encounter Care Teams Senior Investment Manager Relationship Specialty Start Date End Date Nunu Saavedra MD [address] [place] [address] PCP - General 03/26/11 documented as of this encounter
--- OUTSIDE RECORDS SUMMARY | 2024-06-24 19:10 | XMS_ITS | Encounter Summary ---
Author Organization [facility] Address [facility] [place] [address] Care Team Providers Care Grocery Caddy Name Role Phone Nunu Saavedra MD Primary Care Provider Encounter Details Date Type Department Care Team (Late st Contact Info) Description 12/22/2013 Ancillary Procedure Radiology Library at [facility] [place] [address] Nunu Saavedra MD [address] [place] [address] Social History Tobacco Use Types Packs/Day Years [...] FILM LIBRARY STORAGE ONLY DX SPINE Routine 12/22/2013 12:00 AM EDT documented in this encounter Results * Film Library- Storage Only DX Spine (12/22/2013 12:00 AM EDT) Narrative [facility] - 05/24/2020 9:08 PM EDT This exam is auto-finalizing. It's purpose is for storage only. Nunu Saavedra MD IMG FILM LIBRARY ORD ERABLES [facility] [place], [place] documented in this encounter Visit Diagnoses Not on filedocumented in this encounter Care Teams Grocery Caddy Relationship Specialty Start Date End Date Nunu Saavedra MD [address] [place] [address] PCP - General 08/20/10 05/27/20 documented as of this encounter
--- OUTSIDE RECORDS SUMMARY | 2024-06-24 19:10 | XMS_ITS | Clinical Summary ---
Author Organization Replaced By [facility] [place] [address] Care Team Providers Care Endodontic Assistant Name Role Phone Tanya Vela RAYMOND Primary Care Provider [phone] Allergies No known active allergies Medications Medication Sig Dispensed Refills Start Date End Date Status methylphenidate (CONCERTA) 54 mg CR tablet 09/27/2009 Active pantoprazole (PROTONIX) 40 mg tablet 40 MG = 1 Tablet(s), PO, Once daily 09/27/2009 Active sucralfate (CARAFATE) 1 gram tablet 1 GRAM = 1 Tablet(s), PO, Four times daily 09/27/2009 Active Social History Tobacco Use Types Packs/Day Years Used Date Smoking Tobacco: Never Assessed Sex and Gender Information Value Date Recorded Sex Assigned at Not on file Gender Identity Not on file Sexual Orientation Not on file Plan of Treatment Health Maintenance Due Date Last Done Comments HIV screen 2011 Hepatitis C Screening 2011 Hepatitis B vaccine (0-59 yrs) (1) 2012 Tdap adult (Retired) 2012 Tetanus vaccine (Retired) 2012 Covid-19 Vaccine ( - 2022-24 season) 2024 Influenza (Flu) vaccine (1 o f 1 - Influenza standard series) 05/29/2024 Care Teams Endodontic Assistant Relationship Specialty Start Date End Date Tanya Vela APRN [address] [place] [address] PCP - General Family Medicine 05/28/20
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
--- OUTSIDE RECORDS SUMMARY | 2024-06-24 19:10 | XMS_ITS | Encounter Summary ---
Author Organization [facility] Address [facility] [place] [address] Care Team Providers Care Sales Operations Analyst Name Role Phone Tanya Vela RAYMOND Primary Care Provider [phone] Encounter Details Date Type Department Care Team (Late st Contact Info) Description 05/28/2010 Orders Only [place] [address] Giovany Fernandez MD [facility] [place] [address] Social History Tobacco Use Types Packs/Day Years Used Date Smoking Tobacco: Never Assessed Sex and Gender Information Value Date Recorded Sex Assigned at Not on file Gender Identity Not on file Sexual Orientation Not on file documented as of this encounter Plan of Treatment Not on file documented as of this encounter Procedures Procedure Name Priority Date/Time Associated Diagnosis Comments SURGICAL PATHOLOGY REPORT Routine 05/28/2010 4:59 PM EDT documented in this encounter Results * Surgical Pathology Report (05/28/2010 4:59 PM EDT) Surgical Pathology Report [id number] ? Location: [facility] The signing pathologist has (i) examined the relevant preparation(s) for the specimen(s) and (ii) rendered or confirmed the diagnosis(es). . ?Pathology Surgical Pathology Final Report Clinical Information Specimen Submitted: A - Left and Right Tonsil, Oral Clinical History: Not provided Clinical Diagnosis: Chr tonsillitis Gross Description Labeled/Fixativ e: ? Left and right tonsils, formalin. Quantity/Size: ?Two, averaging 3.9 x 2.7 cm. Tissue Description: ?? Surfaces are congested, dawkins-pink. ??Sectioning reveals ?unremarkable cut surfaces grossly. Sections/Proces sing: ??(R2) ??aje/PPS Microscopic Description Slides reviewed, microscopic description not recorded. Diagnosis Bilateral tonsillectomies : Lymphoid hyperplasia and actinomyces. CR-0 05/29/10 KO 05/29/10 Verified by: ? Kamini ROMERO, Mercedez ?Pathologist ?(Electronic Signature) The attending pathologist whose signature appears on this report has reviewed all diagnostic slides and has edited the gross and/or microscopic portion of the report in rendering the final pathologic diagnosis. JACOB CALVILLO 05/28/2010 4:59 PM EDT Giovany Fernandez MD PATHOLOGY/CYTOLO GY ORDERABLES [facility] documented in this encounter Visit Diagnoses Not on filedocumented in this encounter Care Teams Sales Operations Analyst Relationship Specialty Start Date End Date Tanya Vela APRN [address] [place] [address] PCP - General Family Medicine 05/28/20 documented as of this encounter
--- OUTSIDE RECORDS SUMMARY | 2024-06-24 19:10 | XMS_ITS | Encounter Summary ---
Author Organization [facility] Address [facility] [place] [address] Care Team Providers Care Speech Pathology Supervisor Name Role Phone Nunu Saavedra MD Primary Care Provider [phone] Encounter Details Date Type Department Care Team (Late st Contact Info) Description 01/05/2014 Ancillary Procedure Radiology Library at [facility] [place] [address] Nunu Saavedra MD [address] [place] [address] Social History Tobacco Use Types Packs/Day Years [...] FILM LIBRARY STORAGE ONLY DX SPINE Routine 01/05/2014 12:00 AM EDT documented in this encounter Results * Film Library- Storage Only DX Spine (01/05/2014 12:00 AM EDT) Narrative [facility] - 05/24/2020 9:10 PM EDT This exam is auto-finalizing. It's purpose is for storage only. Nunu Saavedra MD IMG FILM LIBRARY ORD ERABLES [facility] [place], [place] documented in this encounter Visit Diagnoses Not on filedocumented in this encounter Care Teams Speech Pathology Supervisor Relationship Specialty Start Date End Date Nunu Saavedra MD [address] [place] [address] PCP - General 08/20/10 05/27/20 documented as of this encounter
--- OUTSIDE RECORDS SUMMARY | 2024-06-24 19:10 | XMS_ITS | Clinical Summary ---
Author Organization [facility] Address [address] [place] [address] Care Team Providers Care Preprint Analyst Name Role Phone Quentin Friend MD, Nunu Primary Care Provider Social History Tobacco Use Types Packs/Day Years Used Date Smoking Tobacco: Never Assessed Sex and Gender Information Value Date Recorded Sex Assigned at Not on file Gender Identity Not on file Sexual Orientation Not on file Plan of Treatment Health Maintenance Due Date Last Done Comments Hepatitis B Vaccine (1 of - 19+ 3-dose series) 04/23 COVID-19 Vaccine (2022- season) 2023 Hepatitis C Screen Completed 11/15/2019 Procedures Procedure Name Priority Date/Time Associated Diagnosis Comments HEPATITIS C AB W REFLEX TO HCV RNA BY PCR Routine 11/15/2019 6:00 EST from Last 3 Months or Most Recently Relevant to Health Maintenance Results * HEPATITIS C AB W REFLEX TO HCV RNA BY PCR (11/15/2019 6:00 EST) Hep C Antibody Negative Negative 11/16/2019 11:39 EST [facility] Blood VENOUS BLOOD / Unknown 11/15/2019 6:00 EST 11/15/2019 21:41 EST Provider Unknown CHEMISTRY & BLOOD GA S ORDERABLES [facility] [address] [place] [address] from Last 3 Months or Most Recently Relevant to Health Maintenance Care Teams Preprint Analyst Relationship Specialty Start Date End Date Nunu Saaved[place] [address] [facility] - General 03/26/11
--- OUTSIDE RECORDS SUMMARY | 2024-06-24 19:10 | XMS_ITS | Encounter Summary ---
Author Organization [facility] Address [facility] [place] [address] Care Team Providers Care Reducing Salon Attendant Name Role Phone Tanya Vela RAYMOND Primary Care Provider [phone] Encounter Details Date Type Department Care Team (Late st Contact Info) Description 09/27/2009 Orders Only [place] [id number] Evelia Manzo MD [facility] [address] [place] [address] Social History Tobacco Use Types Packs/Day Years [...] Associated Diagnosis Comments SURGICAL PATHOLOGY REPORT Routine 09/27/2009 2:38 PM EST documented in this encounter Results * Surgical Pathology Report (09/27/2009 2:38 PM EST) Surgical Pathology Report [id number] ? Location: 4T The signing pathologist has (i) examined the relevant preparation(s) for the specimen(s) and (ii) rendered or confirmed the diagnosis(es). . ?Pathology Surgical Pathology Final Report Clinical Information Specimen Submitted: A - Biopsy, 3rd duod/bulb B - Biopsy, antrum/body C - Biopsy, distal esophagus D - Biopsy, proximal esophagus Clinical History: 14 yo vomiting, nausea, abdominal pain on PPI, stomach erythema; distal esophagus - small erosions Clinical Diagnosis: Epigastric pain, vomiting, nausea Gross Description A - Labeled/Fixativ e: Biopsy 3rd duodenal bulb, formalin. Qty/Size/Weight : ?Four, ranging from 0.2 cm to 0.4 cm in greatest ?dimension. Tissue Description: ?? Soft, dawkins tissues. Sections/Proces sing: ??(T1) B - Labeled/Fixativ e: Biopsy antrum/body, formalin. Qty/Size/Weight : ?Two, ranging from 0.2 cm to 0.3 cm in greatest ?dimension. Tissue Description: ?? Soft, dawkins tissues. Sections/Proces sing: ??(T1) C - Labeled/Fixativ e: Biopsy distal esophagus, formalin. Qty/Size/Weight : ?Four, averaging 0.3 x 0.2 x 0.1 cm. Tissue Description: ?? Wispy, yellow-dawkins tissues. Sections/Proces sing: ??(T1) D - Labeled/Fixativ e: Biopsy proximal esophagus, formalin. Qty/Size/Weight : ?Three, ranging from 0.2 cm to 0.3 cm in greatest ?dimension. Tissue Description: ?? Wispy, jerome-white tissues. Sections/Proces sing: ??(T1) ??aje/EJR Microscopic Description Slides reviewed, microscopic description not recorded. Diagnosis A - Duodenum, biopsy: ?Duodenal mucosa with no diagnostic abnormality recognized. B - Gastric antrum/body, biopsy: ?Gastric antrum-type with mild reactive gastropathy. ?Gastric body/fundic-typ e mucosa with parietal cell hyperplasia ?consistent with PPI effect. C - Distal esophagus, biopsy: ?Mildly active esophagitis. . Diagnosis D - Proximal esophagus, biopsy: ?Esophageal squamous mucosa with no diagnostic abnormality ?recognized. CR-0 10/01/09 VMS 10/01/09 Verified by: ? Roland Armstrong MD ?Pathologist ?(Electronic Signature) The attending pathologist whose signature appears on this report has reviewed all diagnostic slides and has edited the gross and/or microscopic portion of the report in rendering the final pathologic diagnosis. JACOB CALVILLO 09/27/2009 2:38 PM EST Evelia Manzo MD PATHOLOGY/CYTOL OGY ORDERABLES Performing Organization Address City/State/[facility] Co de Phone Number JACOB CALVILLO documented in this encounter Visit Diagnoses Not on filedocumented in this encounter Care Teams Reducing Salon Attendant Relationship Specialty Start Date End Date Tanya Vela APRN [address] [place] [address] PCP - General Family Medicine 05/28/20 documented as of this encounter
--- OUTSIDE RECORDS SUMMARY | 2024-06-24 19:10 | XMS_ITS | Referral Summary ---
Author Organization [facility] Address [address] [place] [address] Care Team Providers Care Director Of Enterprise Strategy Name Role Phone Quentin Friend MD, Nunu Primary Care Provider [phone] Social History Tobacco Use Types Packs/Day Years Used Date Smoking Tobacco: Never Assessed Sex and Gender Information Value Date Recorded Sex Assigned at Not on file Gender Identity Not on file Sexual Orientation Not on file Plan of Treatment Not on file Procedures Procedure Name Priority Date/Time Associated Diagnosis Comments HEPATITIS C AB W REFLEX TO HCV RNA BY PCR Routine 11/15/2019 6:00 EST from Last 3 Months or Most Recently Relevant to Health Maintenance Results * HEPATITIS C AB W REFLEX TO HCV RNA BY PCR (11/15/2019 6:00 EST) Hep C Antibody Negative Negative 11/16/2019 11:39 EST [facility] Blood VENOUS BLOOD / Unknown 11/15/2019 6:00 EST 11/15/2019 21:41 EST Provider Unknown CHEMISTRY & BLOOD GA S ORDERABLES [facility] [address] [place] [address] from Last 3 Months or Most Recently Relevant to Health Maintenance Care Teams Director Of Enterprise Strategy Relationship Specialty Start Date End Date Nunu Saavedra MD [address] [place] [address] PCP - General 03/26/11
--- OUTSIDE RECORDS SUMMARY | 2024-06-24 19:10 | XMS_ITS | Encounter Summary ---
Author Organization [facility] Address [address] [place] [address] Care Team Providers Care Lean Specialist Name Role Phone Quentin Friend MD, Nunu Primary Care Provider [phone] Encounter Details Date Type Department Care Team (Late st Contact Info) Description 12/18/2014 Results Only [facility] [phone] Melinda Ribera MD [address] [place] [address] [address] [place], [place] [address] Social History Tobacco Use Types Packs/Day Years Used Date Smoking Tobacco: Never Assessed Sex and Gender Information Value Date Recorded Sex Assigned at Not on file Gender Identity Not on file Sexual Orientation Not on file documented as of this encounter Plan of Treatment Not on file documented as of this encounter Procedures Procedure Name Priority Date/Time Associated Diagnosis Comments SURGICAL PATHOLOGY Routine 12/18/2014 16 :21 EDT documented in this encounter Results * SURGICAL PATHOLOGY (12/18/2014 16:21 EDT) Pathology Report: SURGICAL PATHOLOGY REPORT Reports generated via electronic interface contain original data; however they are lacking the format of the original report. Caution should be taken when reading/interpretin g unformatted reports. Name: ? SHANT ZAMAN ? Accession #: ? [id number] ? : ? 1995 (Age: 19) ??M ? Collect Date: ? 12/18/2014 ? Location: ? [facility] ? Receive Date: ? 12/18/2014 ? Provider: MELINDA RIBERA MD Copy to: RENE BOYKIN MD ? Final Pathologic Diagnosis: A. STOMACH, ANTRUM, BIOPSY: - ??Antral mucosa with reactive/chemical gastropathy. B. GASTROESOPHAGEAL JUNCTION, BIOPSY: - ??Squamous mucosa with no specific pathologic features. Document reviewed and electronically signed by: BRIAN TURNER MD Report ??Date: 12/19/2014 15:06 By the signature above, the attending physician certifies that he/she has personally conducted a gross and/or microscopic examination of the described specimens and rendered or confirmed the above diagnosis. Specimen(s) Received: A. ??Gastric antrum B. ??GE junction Clinical History: GERD Gross Description: A. ?Received in formalin labelled with proper patient identification (initials C, J) and gastric antrum is a single pink-dawkins tissue fragment (0.3 x 0.2 x 0.1 cm). Entirely submitted in A1. B. ?Received in formalin labelled with proper patient identification (initials C, J) and GE junction is a single white tissue fragment (0.3 x 0.2 x 0.1 cm). Submitted intact in B1. Nakia Torres 12/18/2014 6:13 PM End of Report [facility] 12/18/2014 16:2 1 EDT 12/18/2014 16:21 EDT Melinda Ribera MD PATHOLOGY ORDERA AGNES [facility] [address] [place] [address] documented in this encounter Visit Diagnoses Not on filedocumented in this encounter Care Teams Lean Specialist Relationship Specialty Start Date End Date Nunu Saavedra MD [address] [place] [address] PCP - General 03/26/11 documented as of this encounter
--- OUTSIDE RECORDS SUMMARY | 2024-06-24 19:10 | XMS_ITS | Encounter Summary ---
Author Organization [facility] Address [address] [place] [address] Care Team Providers Care Ged Instructor Name Role Phone Quentin Friend MD, Nunu Primary Care Provider [phone] Encounter Details Date Type Department Care Team (Late st Contact Info) Description 11/15/2019 Lab Requisition [facility] Pathology & Laboratory Medicine - [address] [address] Unknown, Provider, Social History Tobacco Use Types Packs/Day Years Used Date Smoking Tobacco: Never Assessed Sex and Gender Information Value Date Recorded Sex Assigned at Not on file Gender Identity Not on file Sexual Orientation Not on file documented as of this encounter Plan of Treatment Not on file documented as of this encounter Procedures Procedure Name Priority Date/Time Associated Diagnosis Comments SYPHILIS SEROLOGY Routine 11/15/2019 6:00 EST documented in this encounter Results * SYPHILIS SEROLOGY (11/15/2019 6:00 EST) Syphilis Serology Negative Negative 11/16/2019 11:45 EST [facility] Blood VENOUS BLOOD / Unknown 11/15/2019 6:00 EST 11/15/2019 21:43 EST Provider Unknown IMMUNOLOGY AND SEROL OGY ORDERABLES [facility] [address] [place] [address] documented in this encounter Visit Diagnoses Not on filedocumented in this encounter Care Teams Ged Instructor Relationship Specialty Start Date End Date Nunu Saavedra MD [address] [place] [address] PCP - General 03/26/11 documented as of this encounter
[2024-06-24 19:31] LABS: Abs Immature Grans 0.02 10^3/uL (0.0-0.06); Absolute Basophil Count 0.03 10^3/uL (0.0-0.2); Absolute Lymphocyte Count 3.36 10^3/uL (1.2-3.4); Absolute Monocyte Count 0.31 10^3/uL (0.1-0.8); Absolute Neutrophil Count 3.46 10^3/uL (1.2-6.7); Basophils % 0.4 %; Eosinophils % 1.4 %; HGB 14.4 g/dL (13.5-17.5); Immature Grans % 0.3 %; Lymphocytes % 46.2 %; MCHC 35.1 % (32.0-36.0); MCV 88 fL (80-95); MPV 11.7 fL (8.0-11.0); Monocytes % 4.3 %; Neutrophils % 47.4 %; Platelet Count 224 10^3/uL (130-400); RBC 4.64 10^6/uL (4.36-5.78); RDW 11.9 % (11.8-14.1); RDW-SD 38.1 fL; WBC 7.28 10^3/uL (4.4-10.8)
[2024-06-24 19:33] LABS: ESR 8 mm/hr (0-15)
[2024-06-24 19:39] LABS: Creatine Kinase 101 U/L (39-308)
[2024-06-24 19:41] LABS: C-Reactive Protein < 0.50 mg/dL (<or=0.5)
[2024-06-27 11:07] LABS: Lyme Ab w Rflx to Lyme Confirm Negative (Negative)
[2024-06-29 13:52] LABS: Anaplasma phagocytophilum Negative (Negative); B. miyamotoi PCR Negative (Negative); Babesia divergens/MO-1 Negative (Negative); Babesia duncani Negative (Negative); Babesia microti Negative (Negative); Ehrlichia chaffeensis Negative (Negative); Ehrlichia ewingii/canis Negative (Negative); Ehrlichia muris eauclairensis Negative (Negative)
== END 2024-06-24 19:08 | disposition home or self-care (01) ==
LOC: NCHCN 19:07
PROVIDERS: PCP Nurse Practitioner Family; Visit Provider Nurse Practitioner Family
DX: M25.59 Pain in other specified joint (principal)
CPT/HCPCS: 82550; 85652; 87798; 85025; 86140; 86618

== ENCOUNTER 2024-10-24 18:57 | Outpatient (CLI) | payer MEDICAID, SELFPAY ==
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
== END 2024-10-24 19:17 ==
PROVIDERS: PCP Nurse Practitioner Family; Visit Provider Physician Assistant
DX: M54.2 Cervicalgia (principal)
CPT/HCPCS: 72050